=== PATIENT | male | born 1945 | race Caucasian/White ===

== ENCOUNTER 2016-11-20 13:38 | Emergency (ER) | payer BC ==
[~2016-11-20] VITALS: Ht 190.5 cm; Wt 72.0 kg
[~2016-11-20 13:38] MED LIST: ASPI81CH CHEW; ATOR20TA15 PO; DIAZ5TAB PO; FINA5TAB2 PO; HYDR-3535 PO; SERT-129 PO; TAMS5CAP PO; ZOLP12.5 PO
[2016-11-20 13:41] VITALS: BP 125/66; PULSE 65; RESP 20; TEMP 97.6; O2SAT 97
[2016-11-20] MEDS ORDERED: PANTOPRAZOLE SODIUM 40 MG VIAL IVP ONE (14:15)
[2016-11-20] MEDS ORDERED: SODIUM CHLORIDE 0.9% FLUSH 10 ML FLUSH IV FLUSH PRN (14:15)
--- NOTE | 2016-11-20 14:20 | PD ---
HPI Chief Complaint: Abdominal Pain Time Seen by Provider: 13:54 Travel History International Travel<30 days: No Contact w/Intl Traveler<30days: No Traveled to known affect area: No History of Present Illness HPI This patient complains of abdominal pain. Location is epigastric. Duration is 2 days. Severity is moderate. He has no vomiting or diarrhea or fever. He drinks very little alcohol. He reports black tarry stool for the last 2 times he had a bowel movement. No bright red bleeding. No presyncopal symptoms. No alleviating factors. Pain is worse when he eats PFSH Past Medical History Hx Anticoagulant Therapy: Yes (asa) Cardiovascular Problems: Yes (Bilat femoral bypass 2004) High Cholesterol: Yes Diminished Hearing: Yes Past Surgical History Cholecystectomy: Yes Other Surgery: Yes (HEMORROIDECTOMY) Social History Alcohol Use: No Tobacco Use: Yes (1 PPD) Substance Use: Yes (MARIJUANA) Allergies-Medications (Allergen,Severity, Reaction): Coded Allergies: Contrast Media (Verified Allergy, Intermediate, rash, 11/20/16) Rash on body don't remember which part Reported Meds & Prescriptions Reported Meds & Active Scripts Active Reported Atorvastatin (Atorvastatin Calcium) 20 Mg Tab 20 Mg PO HS Lortab (Hydrocodone-Acetaminophen) 10-325 Mg Tab 1 Tab PO Q6H PRN Zolpidem ER (Zolpidem Tartrate) 12.5 Mg Tab 12.5 Mg PO HS PRN Diazepam 5 Mg Tab 5 Mg PO TID PRN Finasteride 5 Mg Tab 5 Mg PO DAILY Do not crush. Sertraline (Sertraline HCl) 100 Mg Tab 100 Mg PO DAILY Flomax (Tamsulosin HCl) 0.4 Mg Cap 0.8 Mg PO HS Aspirin 81 Mg Chew 81 Mg CHEW DAILY Review of Systems General / Constitutional: No: Fever Eyes: No: Visual changes HENT: No: Headaches Cardiovascular: No: Chest Pain or Discomfort Respiratory: No: Shortness of Breath Gastrointestinal: Positive: Abdominal Pain Genitourinary: No: Dysuria Musculoskeletal: No: Pain Skin: No Rash Neurologic: No: Weakness Psychiatric: No: Depression Endocrine: No: Polydipsia Hematologic/Lymphatic: No: Easy Bruising Physical Exam Narrative GENERAL: Well-nourished, well-developed patient in no apparent distress. SKIN: Focused skin assessment reveals no rash and nodules. Skin is Warm and dry. HEAD: Atraumatic. Normocephalic. EYES: Pupils equal and round. No scleral icterus. No injection or drainage. ENT: No nasal bleeding or discharge. Mucous membranes pink and moist. NECK: Trachea midline. No JVD. CARDIOVASCULAR: Regular rate and rhythm. No murmur appreciated. RESPIRATORY: No accessory muscle use. Clear to auscultation. Breath sounds equal bilaterally. GASTROINTESTINAL: Abdomen soft, no significant tenderness, nondistended. Hepatic and splenic margins not palpable. MUSCULOSKELETAL: No obvious deformities. No clubbing. No cyanosis. No edema. NEUROLOGICAL: Awake and alert. No obvious cranial nerve deficits. Motor grossly within normal limits. Normal speech. PSYCHIATRIC: Appropriate mood and affect; insight and judgment normal. Data Data Last Documented VS Vital Signs Date Time Temp Pulse Resp B/P Pulse Ox O2 Delivery O2 Flow Rate FiO2 11/20/16 13:59 18 11/20/16 13:41 97.6 65 125/66 97 Room Air Orders Complete Blood Count With Diff (11/20/16 14:10) Comprehensive Metabolic Panel (11/20/16 14:10) Lipase (11/20/16 14:10) Prothrombin Time / Inr (Pt) (11/20/16 14:10) Act Partial Throm Time (Ptt) (11/20/16 14:10) Iv Access Insert/Monitor (11/20/16 14:10) NPO (11/20/16 14:10) Pantoprazole Inj (Protonix Inj) (11/20/16 14:15) Sodium Chloride 0.9% Flush (Ns Flush) (11/20/16 14:15) Labs Laboratory Tests Test 11/20/16 14:20 White Blood Count 7.5 TH/MM3 Red Blood Count 4.94 MIL/MM3 Hemoglobin 14.9 GM/DL Hematocrit 44.0 % Mean Corpuscular Volume 89.1 FL Mean Corpuscular Hemoglobin 30.2 PG Mean Corpuscular Hemoglobin 33.9 % Concent Red Cell Distribution Width 14.1 % Platelet Count 159 TH/MM3 Mean Platelet Volume 9.4 FL Neutrophils (%) (Auto) 62.2 % Lymphocytes (%) (Auto) 28.0 % Monocytes (%) (Auto) 5.8 % Eosinophils (%) (Auto) 3.6 % Basophils (%) (Auto) 0.4 % Neutrophils # (Auto) 4.6 TH/MM3 Lymphocytes # (Auto) 2.1 TH/MM3 Monocytes # (Auto) 0.4 TH/MM3 Eosinophils # (Auto) 0.3 TH/MM3 Basophils # (Auto) 0.0 TH/MM3 CBC Comment DIFF FINAL Differential Comment Prothrombin Time 11.4 SEC Prothromb Time International 1.0 RATIO Ratio Activated Partial 27.8 SEC Thromboplast Time Sodium Level 140 MEQ/L Potassium Level 3.9 MEQ/L Chloride Level 107 MEQ/L Carbon Dioxide Level 25.7 MEQ/L Anion Gap 7 MEQ/L Blood Urea Nitrogen 9 MG/DL Creatinine 1.10 MG/DL Estimat Glomerular Filtration 66 ML/MIN Rate Random Glucose 135 MG/DL Calcium Level 8.7 MG/DL Total Bilirubin 0.6 MG/DL Aspartate Amino Transf 21 U/L (AST/SGOT) Alanine Aminotransferase 36 U/L (ALT/SGPT) Alkaline Phosphatase 103 U/L Total Protein 6.9 GM/DL Albumin 3.7 GM/DL Lipase 86 U/L [facility] Medical Decision Making Medical Screen Exam Complete: Yes Emergency Medical Condition: Yes Medical Record Reviewed: Yes Differential Diagnosis Upper GI bleed, gastric ulcer, pancreatitis Narrative Course I have reviewed the patient's electronic medical record. Patient has history of bifemoral bypass which was done through abdominal approach. He has had a cholecystectomy as well. Normal hemoglobin laboratory studies from April 2016 IV placed CBC is normal with hemoglobin of 14.9 Metabolic profile is normal LFTs are normal Lipase is normal I gave him 40 mg IV Protonix On recheck he is doing well and declines any pain medicine either now or on prescription This clearly sounds like a GI related issue and he should get a gastroenterology follow-up He should take daily Prilosec I advised him on what to avoid diet-fox Diagnosis Primary Impression: Acute epigastric pain Additional Impression: Melena Additional Instructions: Follow-up with primary care and GI physician Take daily Prilosec Avoid anti-inflammatories and alcohol Stop aspirin for the short term and discuss that with your physician Return if he had significant bleeding or worsen Med/Other Pt SpecificInfo: Other Disposition: 01 DISCHARGE HOME Condition: Stable Stephen Rubio MD November 20, 2016 14:20
[2016-11-20 14:36] LABS: AUTOMATED NEUTROPHIL # 4.6 TH/MM3 (1.8-7.7); BASOPHIL % 0.4 % (0.0-2.0); EOSINOPHIL # 0.3 TH/MM3 (0-0.4); EOSINOPHIL % 3.6 % (0.0-4.0); HEMO FLAGS DIFF FINAL; LYMPHOCYTE # 2.1 TH/MM3 (1.0-4.8); MEAN CELL VOLUME 89.1 FL (80.0-100.0); MEAN CORPUSCULAR HEMOGLOBIN 30.2 PG (27.0-34.0); MEAN CORPUSCULAR HGB CONC 33.9 % (32.0-36.0); MONO % 5.8 % (0.0-8.0); NEUT % 62.2 % (16.0-70.0); PLATELET COUNT 159 TH/MM3 (150-450); RED BLOOD COUNT 4.94 MIL/MM3 (4.50-5.90); RED CELL DISTRIBUTION WIDTH 14.1 % (11.6-17.2); WHITE BLOOD COUNT 7.5 TH/MM3 (4.0-11.0)
[2016-11-20 14:46] LABS: APTT (PATIENT) 27.8 SEC (24.3-30.1); PROTHROMBIN TIME - PATIENT 11.4 SEC (9.8-11.6)
[2016-11-20 14:55] LABS: ALKALINE PHOSPHATASE 103 U/L (45-117); ALT (GPT) 36 U/L (12-78); TOTAL BILIRUBIN ADULT 0.6 MG/DL (0.2-1.0)
[2016-11-20 15:02] LABS: ANION GAP 7 MEQ/L (5-15); AST (GOT) 21 U/L (15-37); BICARBONATE 25.7 MEQ/L (21.0-32.0); BLOOD UREA NITROGEN 9 MG/DL (7-18); CHLORIDE 107 MEQ/L (98-107); GLOMERULAR FILTRATION RATE 66 ML/MIN (>89); POTASSIUM 3.9 MEQ/L (3.5-5.1); SODIUM (NA) 140 MEQ/L (136-145)
== END 2016-11-20 16:46 | disposition home or self-care (01) ==
LOC: NEPC 13:38
DX: R10.13 Epigastric pain (principal); K92.1 Melena; E78.00 Pure hypercholesterolemia, unspecified; H91.90 Unspecified hearing loss, unspecified ear; F17.200 Nicotine dependence, unspecified, uncomplicated; Z79.82 Long term (current) use of aspirin; Z86.79 Personal history of other diseases of the circulatory system
CPT/HCPCS: 80053; 83690; 85025; 85610; 85730; 96374; 99284; C9113

== ENCOUNTER 2017-04-28 16:56 | Emergency (ER) | payer BC ==
[~2017-04-28 16:56] MED LIST changes: +ASPI-516 CHEW; -ASPI81CH CHEW
[2017-04-28 17:09] VITALS: BP 134/69; PULSE 42; RESP 20; O2SAT 10
[2017-04-28] MEDS ORDERED: BUPIVACAINE HCL PF 0.5% 30 ML VIAL INFIL ONE (17:15)
[2017-04-28] MEDS ORDERED: LIDOCAINE 2%/EPINEPHrine 1:100,000 20ML MDV NERV BLOCK ONE (17:15)
--- NOTE | 2017-04-28 17:22 | PD ---
HPI Chief Complaint: Laceration/Skin Injury Time Seen by Provider: 17:11 Travel History International Travel<30 days: No Contact w/Intl Traveler<30days: No Traveled to known affect area: No History of Present Illness HPI 71-year-old male brought in by EMS from his home after an incident with his [place], sustaining a laceration to the distal lateral right thumb, while working on some bathroom remodeling in his home. She states his tetanus is up-to-date. Patient states his pain is 9 out of 10. Bleeding is currently controlled with pressure dressing. He has no other injury. PFSH Past Medical History Hx Anticoagulant Therapy: Yes (asa) Cardiovascular Problems: Yes (Bilat femoral bypass 2004) High Cholesterol: Yes Diminished Hearing: Yes Tetanus Vaccination: < 5 Years Past Surgical History Abdominal Surgery: Yes (cholecystectomy) Cardiac Surgery: Yes (BIPASS ) Cholecystectomy: Yes Other Surgery: Yes (HEMORROIDECTOMY) Social History Alcohol Use: No Tobacco Use: Yes (1 PPD) Substance Use: Yes (MARIJUANA) Allergies-Medications (Allergen,Severity, Reaction): Coded Allergies: diatrizoate meglumine (Unverified Allergy, Intermediate, rash, 04/15/17) Rash on body don't remember which part gadobenic acid (Unverified Allergy, Intermediate, rash, 04/15/17) Rash on body don't remember which part gadodiamide (Unverified Allergy, Intermediate, rash, 04/15/17) Rash on body don't remember which part gadoteridol (Unverified Allergy, Intermediate, rash, 04/15/17) Rash on body don't remember which part iodixanol (Unverified Allergy, Intermediate, rash, 04/15/17) Rash on body don't remember which part iohexol (Unverified Allergy, Intermediate, rash, 04/15/17) Rash on body don't remember which part Reported Meds & Prescriptions Reported Meds & Active Scripts Active Ibuprofen 800 Mg Tab 800 Mg PO Q8H PRN 10 Days Keflex (Cephalexin) 500 Mg Cap 500 Mg PO Q8H 7 Days Reported Atorvastatin (Atorvastatin Calcium) 20 Mg Tab 20 Mg PO HS Lortab (Hydrocodone-Acetaminophen) 10-325 Mg Tab 1 Tab PO Q6H PRN Zolpidem ER (Zolpidem Tartrate) 12.5 Mg Tab 12.5 Mg PO HS PRN Diazepam 5 Mg Tab 5 Mg PO TID PRN Finasteride 5 Mg Tab 5 Mg PO DAILY Do not crush. Sertraline (Sertraline HCl) 100 Mg Tab 100 Mg PO DAILY Flomax (Tamsulosin HCl) 0.4 Mg Cap 0.8 Mg PO HS Aspirin 81 Mg Chew 81 Mg CHEW DAILY Review of Systems Except as stated in HPI: all other systems reviewed are Neg General / Constitutional: No: Fever Eyes: No: Visual changes HENT: No: Headaches Cardiovascular: No: Chest Pain or Discomfort Respiratory: No: Shortness of Breath Gastrointestinal: No: Abdominal Pain Genitourinary: No: Dysuria Musculoskeletal: No: Pain Skin: Positive Lesions, No Rash Neurologic: No: Weakness Psychiatric: No: Depression Endocrine: No: Polydipsia Hematologic/Lymphatic: No: Easy Bruising Physical Exam Narrative GENERAL: Patient appears in moderate distress. SKIN: Warm and dry. Decreased pallor. No diaphoresis. Normal turgor. Patient has a laceration to the lateral distal right thumb with apparent avulsion of the nail bed at the base. Laceration approaches the nail but does not cut into the nail itself versus inspection. The wound does not involve the DIP joint by inspection. Bleeding is currently controlled. HEAD: Atraumatic. Normocephalic. EYES: Pupils equal and round. No scleral icterus. No injection or drainage. ENT: No nasal bleeding or discharge. Mucous membranes pink and moist. Pharynx is clear. Airway is patent. NECK: Trachea midline. Supple nontender. CARDIOVASCULAR: Regular rate and rhythm. RESPIRATORY: No accessory muscle use. Clear to auscultation. Breath sounds equal bilaterally. MUSCULOSKELETAL: Extremities without clubbing, cyanosis, or edema. No obvious deformities. NEUROLOGICAL: Awake and alert. No obvious cranial nerve deficits. Motor grossly within normal limits. Five out of 5 muscle strength in the arms and legs. Normal speech. PSYCHIATRIC: Appropriate mood and affect; insight and judgment normal. Data Data Last Documented VS Vital Signs Date Time Temp Pulse Resp B/P (MAP) Pulse Ox O2 Delivery O2 Flow Rate FiO2 04/28/17 17:19 48 04/28/17 17:09 20 134/69 (90) 10 Orders Orders Bupivacaine Pf 0.5% Inj (Marcaine Pf 0.5 (04/28/17 17:15) Lidocai-Epi 2%-1:100,000 Inj (Xylocaine- (04/28/17 17:15) Finger ([id number]) (04/28/17 17:20) Basic Metabolic Panel (Bmp) (04/28/17 17:20) Complete Blood Count With Diff (04/28/17 17:20) Iv Access Insert/Monitor (04/28/17 17:20) Cefazolin Inj (Ancef Inj) (04/28/17 17:30) Sodium Chloride 0.9% Flush (Ns Flush) (04/28/17 17:30) Chest, Single Ap (04/28/17 17:20) Labs Laboratory Tests Test 04/28/17 17:45 White Blood Count 14.1 TH/MM3 Red Blood Count 4.49 MIL/MM3 Hemoglobin 13.8 GM/DL Hematocrit 40.6 % Mean Corpuscular Volume 90.6 FL Mean Corpuscular Hemoglobin 30.9 PG Mean Corpuscular Hemoglobin Concent 34.1 % Red Cell Distribution Width 14.4 % Platelet Count 151 TH/MM3 Mean Platelet Volume 9.7 FL Neutrophils (%) (Auto) 75.8 % Lymphocytes (%) (Auto) 16.6 % Monocytes (%) (Auto) 5.2 % Eosinophils (%) (Auto) 1.8 % Basophils (%) (Auto) 0.6 % Neutrophils # (Auto) 10.7 TH/MM3 Lymphocytes # (Auto) 2.3 TH/MM3 Monocytes # (Auto) 0.7 TH/MM3 Eosinophils # (Auto) 0.3 TH/MM3 Basophils # (Auto) 0.1 TH/MM3 CBC Comment DIFF FINAL Differential Comment MDM Medical Decision Making Medical Screen Exam Complete: Yes Emergency Medical Condition: Yes Medical Record Reviewed: Yes Differential Diagnosis Right thumb laceration. Possible bone laceration. Nail avulsion. History of bradycardia. Narrative Course Patient is medically stable at time of exam. Digital block is placed consisting of 50-50 mix of 2% lidocaine with epi and 0.5 % bupivacaine, with a total of 5 mL total injected. Anesthesia was excellent. X-ray of the right thumb is ordered. Labs ordered including CBC BMP, and chest x-ray. EKG shows sinus bradycardia which is well documented in the patient's chart. Labs and chest x-ray is unremarkable. X-ray shows small avulsion type fracture of the distal tuft of the right thumb. Patient is given 1 g Ancef IV. Laceration is repaired. See laceration note. Patient is sent home on Keflex 500 mg 3 times a day 7 days. Patient is given ibuprofen 800 mg 3 times a day #30. Patient has pain medication only can take as well. Dressing and wound care is discussed. Patient should follow with Dr. Gunter, the hand surgeon instrumentation engineer next week for wound check, or return to emergency department if necessary. Procedures Procedure Narrative LACERATION LOCATION: Right distal thumb LENGTH: To have centimeters NUMBER OF STITCHES/JOSE: 1 vertical mattress, 6 simple interrupted REPAIR: The area of the laceration was prepped with Betadine and sterilely draped. Digital block was placed consisting of 50-50 mix of 2% lidocaine with epi mixed with 0.5% bupivacaine, total of 4 mL square placed with good anesthetic effect.. The wound was copiously irrigated and explored without evidence of foreign body, tendon injury or neurovascular injury. The nail was removed as it was completely avulsed from the face. The wound was closed using 4-0 Prolene. This was a single layer repair. A sterile dressing was applied. The patient was advised to keep the dressing clean and dry. Patient tolerated the procedure well. Diagnosis Primary Impression: Laceration of right thumb with damage to nail Qualified Codes: S61.111A - Laceration without foreign body of right thumb with damage to nail, initial encounter Additional Impression: Open fracture of tuft of distal phalanx of right thumb Referrals: Malia Gunter MD call for appointment Patient Instructions: Finger Fracture (ED), Finger Laceration (ED), General Instructions Additional Instructions: Patient is sent home on Keflex 500 mg 3 times a day 7 days. Patient is given ibuprofen 800 mg 3 times a day #30. Patient has pain medication only can take as well. Dressing and wound care is discussed. Patient should follow with Dr. Gunter, the hand surgeon instrumentation engineer next week for wound check, or return to emergency department if necessary. Med/Other Pt SpecificInfo: Wound Care Scripts Ibuprofen (Ibuprofen) 800 Mg Tab 800 MG PO Q8H Y for Pain/Inflammation for 10 Days, #30 TAB 0 Refills Prov: Esteban Cardona MD 04/28/17 Cephalexin (Keflex) 500 Mg Cap 500 MG PO Q8H for Infection for 7 Days, #21 CAP 0 Refills Prov: Esteban Cardona MD 04/28/17 Disposition: 01 DISCHARGE HOME Condition: Stable Jay Isabel Apr 28, 2017 17:22
[2017-04-28] MEDS ORDERED: SODIUM CHLORIDE 0.9% FLUSH 10 ML FLUSH IVF PRN (17:30)
--- NOTE | 2017-04-28 18:12 | RADRPT ---
EXAM DATE/TIME: 04/28/2017 17:40 [facility] COMPARISON: No previous studies available for comparison. INDICATIONS : Trauma. Short of breath. MEDICAL HISTORY : None. SURGICAL HISTORY : None. ENCOUNTER: Initial ACUITY: 1 day PAIN SCORE: 0/10 LOCATION: Bilateral chest FINDINGS: A single view of the chest demonstrates the lungs to be symmetrically aerated without evidence of mas s, infiltrate or effusion. The cardiomediastinal contours are unremarkable. Osseous structures are intact. There are multiple overlying electrocardiogram leads. CONCLUSION: No acute disease. Leonard Brewer MD on April 28, 2017 at 18:10 Board Certified Radiologist. This report was verified electronically.
--- NOTE | 2017-04-28 18:15 | RADRPT ---
EXAM DATE/TIME: 04/28/2017 17:42 [facility] COMPARISON: No previous studies available for comparison. INDICATIONS : Right hand thumb pain and swelling Patient states he pinched it in a tool. MEDICAL HISTORY : None. SURGICAL HISTORY : None. ENCOUNTER: Initial ACUITY: 1 day PAIN SCORE: 10/10 LOCATION: Right hand first digit. FINDINGS: Multiple views the right first digit were obtained and demonstrate soft tissue swelling and deformity over the distal digit. There is an apparent avulsed distal fracture fragment which appears displaced approximately 6-7 mm. There is gas in the soft tissues. CONCLUSION: Small displaced fracture fragment off the distal phalanx. Leonard Brewer MD on April 28, 2017 at 18:11 Board Certified Radiologist. This report was verified electronically.
[2017-04-28 18:18] LABS: AUTOMATED NEUTROPHIL # 10.7 TH/MM3 (1.8-7.7); BASOPHIL # 0.1 TH/MM3 (0-0.2); BASOPHIL % 0.6 % (0.0-2.0); EOSINOPHIL # 0.3 TH/MM3 (0-0.4); EOSINOPHIL % 1.8 % (0.0-4.0); HEMATOCRIT 40.6 % (39.0-51.0); HEMO FLAGS DIFF FINAL; LYMPH % 16.6 % (9.0-44.0); LYMPHOCYTE # 2.3 TH/MM3 (1.0-4.8); MEAN CELL VOLUME 90.6 FL (80.0-100.0); MEAN CORPUSCULAR HEMOGLOBIN 30.9 PG (27.0-34.0); MEAN CORPUSCULAR HGB CONC 34.1 % (32.0-36.0); MONO % 5.2 % (0.0-8.0); NEUT % 75.8 % (16.0-70.0); PLATELET COUNT 151 TH/MM3 (150-450); RED BLOOD COUNT 4.49 MIL/MM3 (4.50-5.90); RED CELL DISTRIBUTION WIDTH 14.4 % (11.6-17.2); WHITE BLOOD COUNT 14.1 TH/MM3 (4.0-11.0)
[2017-04-28] MEDS ORDERED: CEPH-460 PO (18:33)
[2017-04-28] MEDS ORDERED: IBUP1TAB7 PO (18:33)
[2017-04-28 18:48] LABS: POTASSIUM 4.4 MEQ/L (3.5-5.1)
--- NOTE | 2017-04-29 15:46 | EKG ---
Date Performed: 04/28/2017 Time Performed: 17:20:46 PTAGE: 71 years EKG: SINUS BRADYCARDIA ABNORMAL ECG Compared to prior tracing no significant change DOCTOR: Vinayak Gray Interpretating Date/Time 04/29/2017 15:44:52
== END 2017-04-28 19:24 | disposition home or self-care (01) ==
LOC: NEPC 16:56
DX: S61.111A Laceration without foreign body of right thumb with damage to nail, initial encounter (principal); R00.1 Bradycardia, unspecified; W29.8XXA Contact with other powered hand tools and household machinery, initial encounter; Y93.H3 Activity, building and construction; Y92.002 Bathroom of unspecified non-institutional (private) residence as the place of occurrence of the external cause
CPT/HCPCS: 12001; 71010; 73140; 80048; 85025; 93005; 96365; 99284; J0690

== ENCOUNTER → 2017-10-15 | Outpatient (CLI) | payer BC ==
--- NOTE | 2017-10-21 10:08 | RSPPFT ---
DATE OF PROCEDURE: 10/15/17 COMMENTS: Spirometry shows FVC of 3.2 at 63% of predicted, FEV1 of 2.4 at 60%, FEV1/FVC ratio is decreased. Flow is decreased at FEF 25 and FEF 25-75. There is a good response after bronchodilator treatment. Lung volumes show residual volume is increased. TLC is normal. Diffusion capacity is decreased. Flow volume loop indicates an obstructive pattern. Room air arterial blood gases show pH of 7.42, PCO2 of 39, PO2 of 103, BiCarb of 25 and Saturation at 94%. IMPRESSION: 1. Mild obstructive lung disease. 2. Good response after bronchodilator treatment. 3. Lung volumes show hyperinflation. 4. Mild decrease in diffusion capacity. 5. Room air arterial blood gases show normal oxygenation.
== END ==
LOC: HRSP 13:05
PROVIDERS: ATTEND Specialist
DX: J44.9 Chronic obstructive pulmonary disease, unspecified (principal)
CPT/HCPCS: 36600; 82805; 94060; 94726; 94729

== ENCOUNTER 2017-11-18 15:24 | Observation (INO) | payer BC ==
[2017-11-18 15:37] VITALS: BP 122/60; PULSE 44; RESP 16; TEMP 98.6; O2SAT 97
[2017-11-18 15:55] VITALS: BP 132/70; PULSE 42; RESP 16; O2SAT 98
[2017-11-18] MEDS ORDERED: SODIUM CHLORIDE 0.9% FLUSH 10 ML FLUSH IVF PRN (16:00)
[2017-11-18] MEDS ORDERED: ZANT150T2 PO ×2 (16:04)
--- NOTE | 2017-11-18 16:04 | PD ---
HPI Chief Complaint: Cardiac Complaint Time Seen by Provider: 15:50 Travel History International Travel<30 days: No Contact w/Intl Traveler<30days: No Traveled to known affect area: No History of Present Illness HPI 71-year-old male patient with history of smoking, peripheral vascular disease, status post femoropopliteal bypass, presents to the ER today because he states that he ran into the wall 2 days ago and hit his head, had no loss consciousness , but woke up this morning feeling more weak and disoriented, generally weak. He denies any chest pains, shortness of breath, vomiting, headaches, or other issues. He is not on blood thinners. Modifying Factors: None Associated Signs & Symptoms: Head injury last night, general weakness, dizziness Risk Factors: None PFSH Past Medical History Hx Anticoagulant Therapy: Yes (asa) Cardiovascular Problems: Yes (Bilat femoral bypass 2004) High Cholesterol: Yes Diminished Hearing: Yes Past Surgical History Abdominal Surgery: Yes (cholecystectomy) Cardiac Surgery: Yes (BIPASS ) Cholecystectomy: Yes Other Surgery: Yes (HEMORROIDECTOMY) Social History Alcohol Use: No Tobacco Use: Yes (1 PPD) Substance Use: Yes (MARIJUANA) Allergies-Medications (Allergen,Severity, Reaction): Coded Allergies: diatrizoate meglumine (Verified Allergy, Intermediate, rash, 06/10/17) Rash on body don't remember which part gadobenic acid (Verified Allergy, Intermediate, rash, 06/10/17) Rash on body don't remember which part gadodiamide (Verified Allergy, Intermediate, rash, 06/10/17) Rash on body don't remember which part gadoteridol (Verified Allergy, Intermediate, rash, 06/10/17) Rash on body don't remember which part iodixanol (Verified Allergy, Intermediate, rash, 06/10/17) Rash on body don't remember which part iohexol (Verified Allergy, Intermediate, rash, 06/10/17) Rash on body don't remember which part Reported Meds & Prescriptions Reported Meds & Active Scripts Active Reported Zantac (Ranitidine HCl) 150 Mg Tab 150 Mg PO DAILY Atorvastatin (Atorvastatin Calcium) 20 Mg Tab 20 Mg PO HS Zolpidem ER (Zolpidem Tartrate) 12.5 Mg Tab 12.5 Mg PO HS PRN Diazepam 5 Mg Tab 5 Mg PO TID PRN Finasteride 5 Mg Tab 5 Mg PO DAILY Do not crush. Sertraline (Sertraline HCl) 100 Mg Tab 100 Mg PO DAILY Flomax (Tamsulosin HCl) 0.4 Mg Cap 0.8 Mg PO HS Aspirin 81 Mg Chew 81 Mg CHEW DAILY Review of Systems Except as stated in HPI: all other systems reviewed are Neg Physical Exam Narrative GENERAL: Well-developed elderly male patient currently in mild distress. Awake and oriented 3. SKIN: Focused skin assessment warm/dry. HEAD: Atraumatic. Normocephalic. EYES: Pupils equal and round. No scleral icterus. No injection or drainage. ENT: No nasal bleeding or discharge. Mucous membranes pink and moist. NECK: Trachea midline. No JVD. Supple. CARDIOVASCULAR: Regular rate and rhythm. No murmur appreciated. RESPIRATORY: No accessory muscle use. Clear to auscultation. Breath sounds equal bilaterally. GASTROINTESTINAL: Abdomen soft, non-tender, nondistended. Hepatic and splenic margins not palpable. MUSCULOSKELETAL: No obvious deformities. No clubbing. No cyanosis. No edema. NEUROLOGICAL: Awake and alert. No obvious cranial nerve deficits. Motor grossly within normal limits. Normal speech. PSYCHIATRIC: Appropriate mood and affect; insight and judgment normal. Data Data Last Documented VS Vital Signs Date Time Temp Pulse Resp B/P (MAP) Pulse Ox O2 Delivery O2 Flow Rate FiO2 11/18/17 18:56 44 18 146/75 (98) 97 11/18/17 15:55 Room Air 11/18/17 15:37 98.6 Orders Orders Electrocardiogram (11/18/17 15:50) Complete Blood Count With Diff (11/18/17 15:50) Comprehensive Metabolic Panel (11/18/17 15:50) Magnesium (Mg) (11/18/17 15:50) Ckmb (Isoenzyme) Profile (11/18/17 15:50) Troponin I (11/18/17 15:50) Act Partial Throm Time (Ptt) (11/18/17 15:50) Prothrombin Time / Inr (Pt) (11/18/17 15:50) Urinalysis - C+S If Indicated (11/18/17 15:50) Chest, Single Ap (11/18/17 15:50) Ct Brain W/O Iv Contrast(Rout) (11/18/17 15:50) Ecg Monitoring (11/18/17 15:50) Iv Access Insert/Monitor (11/18/17 15:50) Oximetry (11/18/17 15:50) Sodium Chloride 0.9% Flush (Ns Flush) (11/18/17 16:00) CKMB (11/18/17 15:50) CKMB% (11/18/17 15:50) Acetaminophen (Tylenol) (11/18/17 18:45) Drug Screen, Random Urine (11/18/17 18:59) Admit Order (Ed Use Only) (11/18/17 19:01) Labs Laboratory Tests Test 11/18/17 15:50 White Blood Count 8.4 TH/MM3 Red Blood Count 4.87 MIL/MM3 Hemoglobin 14.7 GM/DL Hematocrit 44.5 % Mean Corpuscular Volume 91.5 FL Mean Corpuscular Hemoglobin 30.1 PG Mean Corpuscular Hemoglobin Concent 32.9 % Red Cell Distribution Width 14.4 % Platelet Count 156 TH/MM3 Mean Platelet Volume 9.0 FL Neutrophils (%) (Auto) 68.8 % Lymphocytes (%) (Auto) 24.0 % Monocytes (%) (Auto) 6.1 % Eosinophils (%) (Auto) 0.6 % Basophils (%) (Auto) 0.5 % Neutrophils # (Auto) 5.8 TH/MM3 Lymphocytes # (Auto) 2.0 TH/MM3 Monocytes # (Auto) 0.5 TH/MM3 Eosinophils # (Auto) 0.1 TH/MM3 Basophils # (Auto) 0.0 TH/MM3 CBC Comment DIFF FINAL Differential Comment Prothrombin Time 11.0 SEC Prothromb Time International Ratio 1.1 RATIO Activated Partial Thromboplast Time 25.3 SEC Blood Urea Nitrogen 13 MG/DL Creatinine 1.46 MG/DL Random Glucose 86 MG/DL Total Protein 6.6 GM/DL Albumin 3.7 GM/DL Calcium Level 8.5 MG/DL Magnesium Level 2.0 MG/DL Alkaline Phosphatase 88 U/L Aspartate Amino Transf (AST/SGOT) 20 U/L Alanine Aminotransferase (ALT/SGPT) 43 U/L Total Bilirubin 0.8 MG/DL Sodium Level 139 MEQ/L Potassium Level 4.6 MEQ/L Chloride Level 107 MEQ/L Carbon Dioxide Level 24.6 MEQ/L Anion Gap 7 MEQ/L Estimat Glomerular Filtration Rate 48 ML/MIN Total Creatine Kinase 122 U/L Creatine Kinase MB 1.1 NG/ML Troponin I LESS THAN 0.02 NG/ML MDM Medical Decision Making Medical Screen Exam Complete: Yes Emergency Medical Condition: Yes Medical Record Reviewed: Yes Interpretation(s) EKG shows sinus bradycardia rate of 44 bpm. No signs of acute ST elevations or depressions. Laboratory Tests Test 11/18/17 15:50 Creatinine 1.46 MG/DL (0.60-1.30) Estimat Glomerular Filtration Rate 48 ML/MIN (>89) Troponin I LESS THAN 0.02 NG/ML Last [address] 11/18/17 1550 Signed Impressions: CONCLUSION: 1. No acute intracranial pathology. 2. 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 3. Stable calcifications also noted in the right cerebellar hemisphere. 4. No new or significant changes compared to 2016. Chest X-Ray 11/18/17 1550 Signed Impressions: CONCLUSION: 1. No acute abnormality or significant interval change. Differential Diagnosis Concussion versus ICH versus dehydration versus electrolyte abnormalities Narrative Course Chest x-ray is fairly unremarkable for acute processes. CT of the brain did not show any signs of acute injuries. EKG does show significant bradycardia which could be causing the patient to feel this way. Lab work was fairly unremarkable. At this point, my plan would be to admit him as an observation for bradycardia. Case is discussed with Dr. Rojo for admission. Diagnosis Primary Impression: Symptomatic bradycardia Additional Impression: Symptomatic bradycardia Admitting Information Admitting Physician Requests: Admit Sarahy Santos MD November 18, 2017 16:04
--- NOTE | 2017-11-18 16:24 | RADRPT ---
EXAM DATE: 11/18/2017 4:21 PM EDT AGE/SEX: 71 years / Male INDICATIONS: Palpitations- Dizziness and weakness. CLINICAL DATA: This is the patient's initial encounter. Patient reports that signs and symptoms have been present for 1 day and indicates a pain score of 0/10. MEDICAL/SURGICAL HISTORY: Hypercholesterolemia. Chronic obstructive pulmonary disease. Hyperli pidemia. Cholecystectomy. Hemorrhoidectomy. Bilateral femoral bypass surgery. COMPAR[place]: [facility] [place]. . FINDINGS: No new focal pleural or parenchymal opacities. Cardiomediastinal contours are within normal limits. R emainder of the exam is unchanged. CONCLUSION: 1. No acute abnormality or significant interval change. Electronically signed by: Azam Neal MD 11/18/2017 4:22 PM EDT
[2017-11-18 16:28] LABS: AUTOMATED NEUTROPHIL # 5.8 TH/MM3 (1.8-7.7); BASOPHIL % 0.5 % (0.0-2.0); EOSINOPHIL # 0.1 TH/MM3 (0-0.4); EOSINOPHIL % 0.6 % (0.0-4.0); HEMATOCRIT 44.5 % (39.0-51.0); HEMOGLOBIN 14.7 GM/DL (13.0-17.0); MEAN CELL VOLUME 91.5 FL (80.0-100.0); MEAN CORPUSCULAR HEMOGLOBIN 30.1 PG (27.0-34.0); MEAN CORPUSCULAR HGB CONC 32.9 % (32.0-36.0); MONO % 6.1 % (0.0-8.0); MONOCYTE # 0.5 TH/MM3 (0-0.9); NEUT % 68.8 % (16.0-70.0); PLATELET COUNT 156 TH/MM3 (150-450); RED BLOOD COUNT 4.87 MIL/MM3 (4.50-5.90); RED CELL DISTRIBUTION WIDTH 14.4 % (11.6-17.2); WHITE BLOOD COUNT 8.4 TH/MM3 (4.0-11.0)
[2017-11-18 16:40] LABS: INTERNATIONAL NORMALIZED RATIO 1.1 RATIO
[2017-11-18 16:43] LABS: ALT (GPT) 43 U/L (12-78)
[2017-11-18 16:48] LABS: ALKALINE PHOSPHATASE 88 U/L (45-117); TOTAL BILIRUBIN ADULT 0.8 MG/DL (0.2-1.0); TOTAL PROTEIN 6.6 GM/DL (6.4-8.2); TROPONIN I LESS THAN 0.02 NG/ML (0.02-0.05)
[2017-11-18 16:50] LABS: ALBUMIN 3.7 GM/DL (3.4-5.0); AST (GOT) 20 U/L (15-37); BICARBONATE 24.6 MEQ/L (21.0-32.0); BLOOD UREA NITROGEN 13 MG/DL (7-18); CALCIUM 8.5 MG/DL (8.5-10.1); CHLORIDE 107 MEQ/L (98-107); CREATININE 1.46 MG/DL (0.60-1.30); GLOMERULAR FILTRATION RATE 48 ML/MIN (>89); GLUCOSE,RANDOM 86 MG/DL (74-106); SODIUM (NA) 139 MEQ/L (136-145)
--- NOTE | 2017-11-18 17:49 | RADRPT ---
EXAM DATE: 11/18/2017 5:44 PM EDT AGE/SEX: 71 years / Male INDICATIONS: Dizziness after hitting head. CLINICAL DATA: This is the patient's initial encounter. Patient reports that signs and symptoms have been present for 2 days and indicates a pain score of 0/10. MEDICAL/SURGICAL HISTORY: Cardiovascular disease. None. RADIATION DOSE: 56.35 CTDI (mGy) COMPARISON: [facility] – [place] BRAIN W/O CONTRAST, 05/02/2016. . TECHNIQUE: CT of the head without contrast. Using automated exposure control and adjustment of the mA and/or kV according to patient size, radiation dose was kept as low as reasonably achievable to ob tain optimal diagnostic quality images. FINDINGS: Cerebrum: The ventricles are normal for age. No evidence of midline shift, mass lesion, hemorrhage or acute infarction. No extraaxial fluid collections are seen. Posterior Fossa: There is a stable punctate old infarct in the posterior right cerebellar hemisphere unchanged from 2016. There is a stable ringlike calcification and adjacent calcifications in the rig ht cerebellar hemisphere. These findings are also stable and unchanged compared to 2016.. The 4th ve ntricle is midline. The cerebellopontine angle is unremarkable. Extracranial: The visualized portion of the orbits is intact. Skull: The calvaria is intact. No evidence of skull fracture. CONCLUSION: 1. No acute intracranial pathology. 2. 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 3. Stable calcifications also noted in the right cerebellar hemisphere. 4. No new or significant changes compared to 2016. Electronically signed by: Anshul Almeida MD 11/18/2017 5:48 PM EDT
[2017-11-18] MEDS ORDERED: ACETAMINOPHEN 325 MG TAB PO ONE (18:45)
[2017-11-18 18:56] VITALS: BP 146/75; PULSE 44; RESP 18; O2SAT 97
[2017-11-18 19:14] VITALS: BP 137/78; PULSE 40; RESP 18; O2SAT 99
[2017-11-18] MEDS ORDERED: SODIUM CHLORIDE 0.9% FLUSH 10 ML FLUSH IV FLUSH PRN (19:15)
[2017-11-18] MEDS ORDERED: LACTULOSE SYRUP 20 GM/30 ML CUP PO PRN (19:15)
[2017-11-18] MEDS ORDERED: MAGNESIUM HYDROXIDE SUSP 30 ML CUP PO PRN (19:15)
[2017-11-18] MEDS ORDERED: BISACODYL 10 MG SUPP RECTAL PRN (19:15)
[2017-11-18] MEDS ORDERED: SENNOSIDES 8.6 MG TAB PO PRN (19:15)
[2017-11-18] MEDS ORDERED: NALOXONE HCL 0.4 MG/ML AMP IV PUSH PRN (19:15)
--- NOTE | 2017-11-18 20:11 | HHI.HP ---
[facility] Service [facility] Primary Care Physician Iker Gates MD Admission Diagnosis Symptomatic bradycardia Diagnoses: Chief Complaint: Generalized weakness Travel History International Travel<30 Days: No Contact w/Intl Traveler <30 Da: No Traveled to Known Affected Are: No History of Present Illness Mr. Lewis is a 71-year-old male with a history of peripheral vascular disease, hyperlipidemia who presented to the emergency department on 11/18/2017 due to hitting his head when he ran into the wall. He also woke up this morning feeling very weak and disoriented. Denies any chest pain, shortness of breath, fever or chills. Patient also reports feeling lightheadedness in the last couple of days. He went to [employer] [facility] and felt lightheaded. He went to his primary care physician where he was found to have blood pressure around 70s systolic and heart rate in the 40s. He denies any cough, abdominal pain, changes in bladder or bowel habits. Review of Systems Except as stated in HPI: all other systems reviewed are Neg Past Family Social History Past Medical History Peripheral vascular disease, hyperlipidemia Past Surgical History Cholecystectomy, CABG, hemorrhoidectomy Reported Medications Zantac (Ranitidine HCl) 150 Mg Tab 150 Mg PO DAILY Atorvastatin (Atorvastatin Calcium) 20 Mg Tab 20 Mg PO HS Zolpidem ER (Zolpidem Tartrate) 12.5 Mg Tab 12.5 Mg PO HS PRN Diazepam 5 Mg Tab 5 Mg PO TID PRN Finasteride 5 Mg Tab 5 Mg PO DAILY Do not crush. Sertraline (Sertraline HCl) 100 Mg Tab 100 Mg PO DAILY Flomax (Tamsulosin HCl) 0.4 Mg Cap 0.8 Mg PO HS Aspirin 81 Mg Chew 81 Mg CHEW DAILY Allergies: Coded Allergies: diatrizoate meglumine (Verified Allergy, Intermediate, rash, 06/10/17) Rash on body don't remember which part gadobenic acid (Verified Allergy, Intermediate, rash, 06/10/17) Rash on body don't remember which part gadodiamide (Verified Allergy, Intermediate, rash, 06/10/17) Rash on body don't remember which part gadoteridol (Verified Allergy, Intermediate, rash, 06/10/17) Rash on body don't remember which part iodixanol (Verified Allergy, Intermediate, rash, 06/10/17) Rash on body don't remember which part iohexol (Verified Allergy, Intermediate, rash, 06/10/17) Rash on body don't remember which part Family History No family history of Alzheimer's or Parkinson's. Social History Alcohol Use: No Tobacco Use: Yes (1 PPD) Substance Use: Yes (MARIJUANA) Physical Exam Vital Signs Vital Signs Date Time Temp Pulse Resp B/P (MAP) Pulse Ox O2 Delivery O2 Flow Rate FiO2 11/18/17 19:43 11/18/17 19:14 40 18 137/78 (97) 99 Room Air 11/18/17 18:56 44 18 146/75 (98) 97 11/18/17 15:55 99 11/18/17 15:55 42 16 132/70 (90) 98 Room Air 11/18/17 15:37 98.6 44 16 122/60 (80) 97 Physical Exam GENERAL: This is a well-nourished, well-developed patient, in no apparent distress. SKIN: No rashes, ecchymoses or lesions. Warm and dry. HEAD: Atraumatic. Normocephalic. No temporal or scalp tenderness. EYES: Pupils equal round and reactive. No injection or drainage. ENT: Nose without bleeding, purulent drainage or septal hematoma. Airway patent. NECK: Trachea midline. No lymphadenopathy. Supple, nontender, no meningeal signs. CARDIOVASCULAR: Regular rhythm, bradycardic without murmurs, gallops, or rubs. No JVD. RESPIRATORY: Clear to auscultation. Breath sounds equal bilaterally. No wheezes , rales, or rhonchi. GASTROINTESTINAL: Abdomen soft, non-tender, nondistended. No guarding. MUSCULOSKELETAL: Extremities without clubbing, cyanosis, or edema. NEUROLOGICAL: Awake and alert. Cranial nerves II through XII intact. No focal neurological deficits. Normal speech. Laboratory Laboratory Tests Test 11/18/17 15:50 White Blood Count 8.4 Red Blood Count 4.87 Hemoglobin 14.7 Hematocrit 44.5 Mean Corpuscular Volume 91.5 Mean Corpuscular Hemoglobin 30.1 Mean Corpuscular Hemoglobin Concent 32.9 Red Cell Distribution Width 14.4 Platelet Count 156 Mean Platelet Volume 9.0 Neutrophils (%) (Auto) 68.8 Lymphocytes (%) (Auto) 24.0 Monocytes (%) (Auto) 6.1 Eosinophils (%) (Auto) 0.6 Basophils (%) (Auto) 0.5 Neutrophils # (Auto) 5.8 Lymphocytes # (Auto) 2.0 Monocytes # (Auto) 0.5 Eosinophils # (Auto) 0.1 Basophils # (Auto) 0.0 CBC Comment DIFF FINAL Differential Comment Prothrombin Time 11.0 Prothromb Time International Ratio 1.1 Activated Partial Thromboplast Time 25.3 Blood Urea Nitrogen 13 Creatinine 1.46 Random Glucose 86 Total Protein 6.6 Albumin 3.7 Calcium Level 8.5 Magnesium Level 2.0 Alkaline Phosphatase 88 Aspartate Amino Transf (AST/SGOT) 20 Alanine Aminotransferase (ALT/SGPT) 43 Total Bilirubin 0.8 Sodium Level 139 Potassium Level 4.6 Chloride Level 107 Carbon Dioxide Level 24.6 Anion Gap 7 Estimat Glomerular Filtration Rate 48 Total Creatine Kinase 122 Creatine Kinase MB 1.1 Troponin I LESS THAN 0.02 Result Diagram: 11/18/17 1550 11/18/17 1550 Imaging Last Impressions Head CT 11/18/17 155 Signed Impressions: CONCLUSION: 1. No acute intracranial pathology. 2. 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 3. Stable calcifications also noted in the right cerebellar hemisphere. 4. No new or significant changes compared to 2016. Chest X-Ray 11/18/171549 Signed Impressions: CONCLUSION: 1. No acute abnormality or significant interval change. Caprini VTE Risk Assessment Caprini VTE Risk Assessment: Mod/High Risk (score >= 2) Caprini Risk Assessment Model Point Value = 1 Point Value = 2 Point Value = 3 Point Value = 5 Age 41-60 Minor surgery BMI > 25 kg/m2 Swollen legs Varicose veins or History of unexplained or recurrent spontaneous Oral contraceptives or hormone replacement Sepsis (< 1 month) Serious lung disease, including pneumonia (< 1 month) Abnormal pulmonary function Acute myocardial infarction Congestive heart failure (< 1 month) History of inflammatory bowel disease Medical patient at bed rest Age 61-74 Arthroscopic surgery Major open surgery (> 45 min) Laparoscopic surgery (> 45 min) Malignancy Confined to bed (> 72 hours) Immobilizing plaster cast Central venous access Age >= 75 History of VTE Family history of VTE Factor V Leiden Prothrombin [id number] Lupus anticoagulant Anticardiolipin antibodies Elevated serum homocysteine Heparin-induced thrombocytopenia Other congenital or acquired thrombophilia Stroke (< 1 month) Elective arthroplasty Hip, pelvis, or leg fracture Acute spinal cord injury (< 1 month) Prophylaxis Regimen Total Risk Factor Score Risk Level Prophylaxis Regimen 0-1 Low Early ambulation 2 Moderate Order ONE of the following: *Sequential Compression Device (SCD) *Heparin 5000 units SQ BID 3-4 Higher Order ONE of the following medications: *Heparin 5000 units SQ TID *Enoxaparin/Lovenox 40 mg SQ daily (WT < 150 kg, CrCl > 30 mL/min) *Enoxaparin/Lovenox 30 mg SQ daily (WT < 150 kg, CrCl > 10-29 mL/min) *Enoxaparin/Lovenox 30 mg SQ BID (WT < 150 kg, CrCl > 30 mL/min) AND/OR *Sequential Compression Device (SCD) 5 or more Highest Order ONE of the following medications: *Heparin 5000 units SQ TID (Preferred with Epidurals) *Enoxaparin/Lovenox 40 mg SQ daily (WT < 150 kg, CrCl > 30 mL/min) *Enoxaparin/Lovenox 30 mg SQ daily (WT < 150 kg, CrCl > 10-29 mL/min) *Enoxaparin/Lovenox 30 mg SQ BID (WT < 150 kg, CrCl > 30 mL/min) AND *Sequential Compression Device (SCD) Assessment and Plan Problem List: (1) Symptomatic bradycardia ICD Code: R00.1 - Bradycardia, unspecified Status: Acute (2) PVD (peripheral vascular disease) ICD Code: I73.9 - Peripheral vascular disease, unspecified (3) Smoking history ICD Code: Z72.0 - Smoking history Status: Acute Assessment and Plan Mr. Lewis is a pleasant 71-year-old male with a history of peripheral vascular disease, smoking who presents to the emergency department due to lightheadedness. He went to his primary care physician when he was found to have low blood pressure with low heart rate. Symptomatic bradycardia -Patient symptoms of lightheadedness likely due to bradycardia -Cardiology consulted for an evaluation. Possible need for pacemaker placement. Peripheral vascular disease Hyperlipidemia BPH -Continue aspirin 81 mg, atorvastatin 20 mg, tamsulosin 0.8 mg, finasteride 5 mg. -Continue Zoloft 100 mg p.o. daily, diazepam 5 mg p.o. 3 times daily. Full code. SCDs. Surjit Paris DO November 18, 2017 20:10
[2017-11-18 20:26] VITALS: BP 152/75; PULSE 39; RESP 16; TEMP 97.8; O2SAT 97
[2017-11-18 20:27] LABS: BILIRUBIN, URINE NEG (NEG); BLOOD, URINE NEG (NEG); GLUCOSE,URINE NEG (NEG); KETONE, URINE NEG (NEG); NITRITE,URINE NEG (NEG); URINE COLOR YELLOW (YELLW/STRAW); URINE LEUKOCYTE ESTERASE TRACE (NEG)
[2017-11-18] MEDS: SODIUM CHLORIDE 0.9% FLUSH 10 ML FLUSH IV FLUSH SCH (22:28)
[2017-11-19] VITALS (11 sets, daily range): BP systolic 123–185; BP diastolic 68–102; PULSE 39–73; RESP 16–20; TEMP 97.5–98.4; O2SAT 96–98
[2017-11-19] MEDS ORDERED: ZOLPIDEM TARTRATE 10 MG TAB PO PRN (02:00)
[2017-11-19] MEDS ORDERED: DIAZEPAM 5 MG TAB PO PRN (02:00)
[2017-11-19 06:02] LABS: AUTOMATED NEUTROPHIL # 5.3 TH/MM3 (1.8-7.7); BASOPHIL % 0.6 % (0.0-2.0); EOSINOPHIL # 0.1 TH/MM3 (0-0.4); EOSINOPHIL % 1.4 % (0.0-4.0); HEMATOCRIT 43.4 % (39.0-51.0); HEMOGLOBIN 14.5 GM/DL (13.0-17.0); LYMPH % 30.1 % (9.0-44.0); LYMPHOCYTE # 2.6 TH/MM3 (1.0-4.8); MEAN CELL VOLUME 91.3 FL (80.0-100.0); MEAN CORPUSCULAR HEMOGLOBIN 30.5 PG (27.0-34.0); MEAN CORPUSCULAR HGB CONC 33.4 % (32.0-36.0); MEAN PLATELET VOLUME 8.9 FL (7.0-11.0); MONO % 6.5 % (0.0-8.0); MONOCYTE # 0.6 TH/MM3 (0-0.9); NEUT % 61.4 % (16.0-70.0); PLATELET COUNT 138 TH/MM3 (150-450); RED BLOOD COUNT 4.76 MIL/MM3 (4.50-5.90); RED CELL DISTRIBUTION WIDTH 14.6 % (11.6-17.2); WHITE BLOOD COUNT 8.6 TH/MM3 (4.0-11.0)
[2017-11-19 06:26] LABS: BICARBONATE 28.1 MEQ/L (21.0-32.0); CALCIUM 8.5 MG/DL (8.5-10.1); CREATININE 1.17 MG/DL (0.60-1.30)
--- NOTE | 2017-11-19 08:02 | HHI.PR ---
Subjective Remarks Follow-up on patient with weakness and lightheadedness. Patient seen and examined. Patient states he had a single episode when he got up yesterday from lying in bed and developed acute onset of lightheadedness and dizziness. She was seen his primary care office and was told he had a blood pressure of 70 systolic and a heart rate in the 40s. Patient denies any previous medical history of bradycardia. He is not on any beta-pedro therapy. Patient states he has been eating and drinking his normal amount. He denies any recent illness or sick contacts. He denies any associated fever, chills, cough, vision changes, headache, weakness, numbness/tingling, loss of consciousness, chest pain, palpitations, shortness of breath, abdominal pain, dysuria, diarrhea , constipation, bowel or bladder incontinence. Patient states he got up during the night to use the bathroom and did not experience any episodes of lightheadedness or dizziness. He states he feels well this morning. Objective Vitals Vital Signs Date Time Temp Pulse Resp B/P (MAP) Pulse Ox O2 Delivery O2 Flow Rate FiO2 11/19/17 04:01 97.5 45 16 123/74 (90) 98 11/19/17 03:40 42 11/19/17 00:30 39 11/19/17 00:08 97.5 43 16 142/77 (98) 98 11/18/17 20:26 97.8 39 16 152/75 (100) 97 11/18/17 19:43 11/18/17 19:14 40 18 137/78 (97) 99 Room Air 11/18/17 18:56 44 18 146/75 (98) 97 11/18/17 15:55 99 11/18/17 15:55 42 16 132/70 (90) 98 Room Air 11/18/17 15:37 98.6 44 16 122/60 (80) 97 I/O 11/18/17 11/18/17 11/18/17 11/19/17 11/19/17 11/19/17 07:00 15:00 23:00 07:00 15:00 23:00 Intake Total 120 ml Balance 120 ml Intake Oral 120 ml Result Diagram: 11/19/17 0448 11/19/17 0448 Imaging Last Impressions Head CT 11/18/17 9870 Signed Impressions: CONCLUSION: 1. No acute intracranial pathology. 2. 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 3. Stable calcifications also noted in the right cerebellar hemisphere. 4. No new or significant changes compared to 2016. Chest X-Ray 11/18/17 1550 Signed Impressions: CONCLUSION: 1. No acute abnormality or significant interval change. Objective Remarks GENERAL: This is a well-nourished, well-developed male patient, in no apparent distress. Sleeping soundly but easily arousable to voice. SKIN: No rashes, ecchymoses or lesions. Warm and dry. HEAD: Atraumatic. Normocephalic. No temporal or scalp tenderness. EYES: Pupils equal round and reactive. No injection or drainage. ENT: Nose without bleeding or purulent drainage. Airway patent. MMM. NECK: Trachea midline. No lymphadenopathy. Supple, nontender, no meningeal signs. CARDIOVASCULAR: Regular rhythm, bradycardic without murmurs, gallops, or rubs. No JVD. RESPIRATORY: Nonlabored. Clear to auscultation. Breath sounds equal bilaterally. No wheezes, rales, or rhonchi. GASTROINTESTINAL: Abdomen soft, non-tender, nondistended. No guarding. MUSCULOSKELETAL: Extremities without clubbing, cyanosis, or edema. NEUROLOGICAL: Awake and alert. Cranial nerves II through XII grossly intact. Able to move all extremities spontaneously. No focal neurological deficits. Normal speech. PSYCHIATRIC: Calm and cooperative Procedures None A/P Problem List: (1) Symptomatic bradycardia ICD Code: R00.1 - Bradycardia, unspecified Status: Acute (2) PVD (peripheral vascular disease) ICD Code: I73.9 - Peripheral vascular disease, unspecified (3) Smoking history ICD Code: Z72.0 - Smoking history Status: Acute Assessment and Plan Mr. Lewis is a pleasant 71-year-old male with a history of peripheral vascular disease, smoking who presents to the emergency department due to lightheadedness. He went to his primary care physician when he was found to have low blood pressure with low heart rate. Symptomatic bradycardia Magnesium 2.0 -Patient symptoms of lightheadedness likely due to bradycardia -Cardiology consulted for an evaluation. Possible need for pacemaker placement. -obtain TSH level Dizziness and lightheadedness, suspect secondary to symptomatic bradycardia -Obtain B12 and phosphorus level -PT eval/tx -Obtain orthostatic BP measurements CORNELIUS, possibly secondary to dehydration which may have contributed to patient's admitting complaints of lightheadedness Creatinine improved from 1.46 to 1.17 UA unremarkable -Avoid nephrotoxic agents -Continue to monitor kidney function as indicated Peripheral vascular disease Hyperlipidemia BPH -Continue aspirin 81 mg, atorvastatin 20 mg, tamsulosin 0.8 mg, finasteride 5 mg. -Continue Zoloft 100 mg p.o. daily, diazepam 5 mg p.o. 3 times daily. Polysubstance use Patient's urine tox positive for benzodiazepines and cannabis -Discussed importance of cessation Full code. SCDs. Discharge Planning Possible discharge later today pending completion of workup and cardiology clearance Jackie Powers November 19, 2017 08:01
--- NOTE | 2017-11-19 08:28 | PD.CONS ---
HPI Consult Requested By Primary Care Physician Iker Gates MD History of Present Illness 71-year-old male with past medical history of PVD, HLD, BPH, anxiety/depression who presented after an episode of dizziness and low blood pressure. Patient states that he was feeling unsteady yesterday so he went to his PCPs office. He reports his BP was in the 70s there which concerned him and his so they went to the ED for evaluation. He has also been noted to be bradycardic with his heart rate persistently in the low 40s. He denies any recent medication changes, has been on sertraline for the past 2 years. He has never been told he has a low heart rate before. He denies any orthostatic dizziness. He denies any syncope or near syncopal sensation. EKG with sinus bradycardia, no high degree AV block. He does report that he quit smoking 2 weeks ago and since then has not been eating or drinking as much. His labs did show some mild CORNELIUS/dehydration upon admission. (Jorge Alberto Soriano) Review of Systems Negative except as stated in the HPI (Jorge Alberto Soriano) Past Family Social History Allergies: Coded Allergies: diatrizoate meglumine (Verified Allergy, Intermediate, rash, 06/10/17) Rash on body don't remember which part gadobenic acid (Verified Allergy, Intermediate, rash, 06/10/17) Rash on body don't remember which part gadodiamide (Verified Allergy, Intermediate, rash, 06/10/17) Rash on body don't remember which part gadoteridol (Verified Allergy, Intermediate, rash, 06/10/17) Rash on body don't remember which part iodixanol (Verified Allergy, Intermediate, rash, 06/10/17) Rash on body don't remember which part iohexol (Verified Allergy, Intermediate, rash, 06/10/17) Rash on body don't remember which part Past Medical History PVD, HLD, BPH, anxiety/depression Past Surgical History Cholecystectomy, hemorrhoidectomy Reported Medications Reported Meds & Active Scripts Active Reported Zantac (Ranitidine HCl) 150 Mg Tab 150 Mg PO DAILY Atorvastatin (Atorvastatin Calcium) 20 Mg Tab 20 Mg PO HS Zolpidem ER (Zolpidem Tartrate) 12.5 Mg Tab 12.5 Mg PO HS PRN Diazepam 5 Mg Tab 5 Mg PO TID PRN Finasteride 5 Mg Tab 5 Mg PO DAILY Do not crush. Sertraline (Sertraline HCl) 100 Mg Tab 100 Mg PO DAILY Flomax (Tamsulosin HCl) 0.4 Mg Cap 0.8 Mg PO HS Aspirin 81 Mg Chew 81 Mg CHEW DAILY Active Ordered Medications Current Medications Medications (Trade) Dose Ordered Sig/Florecita Route Start Time Stop Time Status Last Admin (NS Flush) 2 ml UNSCH PRN IV FLUSH 11/18/17 19:15 (NS Flush) 2 ml BID IV FLUSH 11/18/17 21:00 11/18/17 22:28 (Narcan Inj) 0.4 mg UNSCH PRN IV PUSH 11/18/17 19:15 (Milk Of Magnesia Liq) 30 ml Q12H PRN PO 11/18/17 19:15 (Senokot) 17.2 mg Q12H PRN PO 11/18/17 19:15 (Dulcolax Supp) 10 mg DAILY PRN RECTAL 11/18/17 19:15 (Lactulose Liq) 30 ml DAILY PRN PO 11/18/17 19:15 (Aspirin Chew) 81 mg DAILY CHEW 11/19/17 09:00 (Lipitor) 20 mg HS PO 11/19/17 21:00 (Valium) 5 mg TID PRN PO 11/19/17 02:00 (Proscar) 5 mg DAILY PO 11/19/17 09:00 (Zoloft) 100 mg DAILY PO 11/19/17 09:00 (Flomax) 0.8 mg HS PO 11/19/17 21:00 (Pepcid) 20 mg DAILY PO 11/19/17 09:00 (Ambien) 10 mg HS PRN PO 11/19/17 02:00 Family History No family history of Alzheimer's or Parkinson's. Social History Alcohol Use: No Tobacco Use: Former 1 PPD, quit 2 weeks ago Substance Use: Yes (MARIJUANA) (Jorge Alberto Soriano) Physical Exam Vital Signs Vital Signs Date Time Temp Pulse Resp B/P (MAP) Pulse Ox O2 Delivery O2 Flow Rate FiO2 11/19/17 04:01 97.5 45 16 123/74 (90) 98 11/19/17 03:40 42 11/19/17 00:30 39 11/19/17 00:08 97.5 43 16 142/77 (98) 98 11/18/17 20:26 97.8 39 16 152/75 (100) 97 11/18/17 19:43 11/18/17 19:14 40 18 137/78 (97) 99 Room Air 11/18/17 18:56 44 18 146/75 (98) 97 11/18/17 15:55 99 11/18/17 15:55 42 16 132/70 (90) 98 Room Air 11/18/17 15:37 98.6 44 16 122/60 (80) 97 Physical Exam GENERAL: Well-developed well-nourished. In no acute distress. NECK: No carotid bruits. No JVD. CARDIOVASCULAR: Bradycardic regular rate and rhythm. No murmur appreciated. RESPIRATORY: No accessory muscle use. Clear to auscultation. Breath sounds equal bilaterally. MUSCULOSKELETAL: No clubbing or cyanosis. No edema. NEUROLOGICAL: Awake and alert. Normal speech. Laboratory Laboratory Tests Test 11/18/17 15:50 11/18/17 20:01 11/19/17 04:48 White Blood Count 8.4 8.6 Red Blood Count 4.87 4.76 Hemoglobin 14.7 14.5 Hematocrit 44.5 43.4 Mean Corpuscular Volume 91.5 91.3 Mean Corpuscular Hemoglobin 30.1 30.5 Mean Corpuscular Hemoglobin Concent 32.9 33.4 Red Cell Distribution Width 14.4 14.6 Platelet Count 156 138 Mean Platelet Volume 9.0 8.9 Neutrophils (%) (Auto) 68.8 61.4 Lymphocytes (%) (Auto) 24.0 30.1 Monocytes (%) (Auto) 6.1 6.5 Eosinophils (%) (Auto) 0.6 1.4 Basophils (%) (Auto) 0.5 0.6 Neutrophils # (Auto) 5.8 5.3 Lymphocytes # (Auto) 2.0 2.6 Monocytes # (Auto) 0.5 0.6 Eosinophils # (Auto) 0.1 0.1 Basophils # (Auto) 0.0 0.0 CBC Comment DIFF FINAL DIFF FINAL Differential Comment Prothrombin Time 11.0 Prothromb Time International Ratio 1.1 Activated Partial Thromboplast Time 25.3 Blood Urea Nitrogen 13 18 Creatinine 1.46 1.17 Random Glucose 86 78 Total Protein 6.6 Albumin 3.7 Calcium Level 8.5 8.5 Magnesium Level 2.0 Alkaline Phosphatase 88 Aspartate Amino Transf (AST/SGOT) 20 Alanine Aminotransferase (ALT/SGPT) 43 Total Bilirubin 0.8 Sodium Level 139 142 Potassium Level 4.6 3.6 Chloride Level 107 106 Carbon Dioxide Level 24.6 28.1 Anion Gap 7 8 Estimat Glomerular Filtration Rate 48 61 Total Creatine Kinase 122 Creatine Kinase MB 1.1 Troponin I LESS THAN 0.02 Urine Color YELLOW Urine Turbidity CLEAR Urine pH 7.0 Urine Specific [place] 1.010 Urine Protein NEG Urine Glucose (UA) NEG Urine Ketones NEG Urine Occult Blood NEG Urine Nitrite NEG Urine Bilirubin NEG Urine Urobilinogen LESS THAN 2.0 Urine Leukocyte Esterase TRACE Urine RBC LESS THAN 1 Urine WBC 1 Microscopic Urinalysis Comment CULT NOT INDICATED Urine Opiates Screen NEG Urine Barbiturates Screen NEG Urine Amphetamines Screen NEG Urine Benzodiazepines Screen POS Urine Cocaine Screen NEG Urine Cannabinoids Screen POS (Jorge Alberto Soriano) Result Diagram: 11/19/17 0448 11/19/17 0448 Imaging Last Impressions Head CT 11/18/17 1550 Signed Impressions: CONCLUSION: 1. No acute intracranial pathology. 2. 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 3. Stable calcifications also noted in the right cerebellar hemisphere. 4. No new or significant changes compared to 2016. Chest X-Ray 11/18/17 1550 Signed Impressions: CONCLUSION: 1. No acute abnormality or significant interval change. (Jorge Alberto Soriano) Assessment and Plan Assessment and Plan 71-year-old male with past medical history of PVD, HLD, BPH, anxiety/depression who presented after an episode of dizziness and low blood pressure Dizziness: Possibly due to dehydration vs symptomatic bradycardia. Consider decreasing alpha pedro. Sinus bradycardia: Symptomatic? d/w Dr. Ferguson who will ask Dr. Baker to eval for possible pacer. On sertraline, could consider alternative antidepressant with less rate affect. Discussed Condition With Patient, hospitalist, Dr. Ferguson (Jorge Alberto Soriano) Assessment and Plan symptomatic bradycardia with presyncope chronotropic incompetence with fatigue no AV leann blocking agents plan for PPM NPO p MN (Esteban Ferguson MD) Jorge Alberto Soriano November 19, 2017 08:28 Esteban Ferguson MD November 19, 2017 14:50
[2017-11-19 08:55] LABS: PHOSPHORUS 3.9 MG/DL (2.5-4.9)
[2017-11-19] MEDS: FAMOTIDINE 20 MG TAB PO SCH (09:14)
[2017-11-19] MEDS: SERTRALINE HCL 100 MG TAB PO SCH (09:14)
[2017-11-19] MEDS: SODIUM CHLORIDE 0.9% FLUSH 10 ML FLUSH IV FLUSH SCH ×2 (09:15→20:25)
[2017-11-19] MEDS: ASPIRIN 81 MG CHEW TAB CHEW SCH (09:15)
[2017-11-19] MEDS: FINASTERIDE 5 MG TAB PO SCH (09:15)
[2017-11-19] MEDS ORDERED: VANCOMYCIN INJ 1,000 MG in SODIUM CHLOR 0.9% 250 ML INJ 250 ML IV SCH (13:45)
[2017-11-19] MEDS ORDERED: CHLORHEXIDINE GLUCONATE 2 % 1 PACK (2 CLOTHS) TOP SCH (13:45)
--- NOTE | 2017-11-19 13:57 | PD.CARD.PN ---
Subjective Subjective Remarks Asked by Sukumar Ferguson to evaluate patient for PPM for symptomatic bradycardia. Patient is with chronic fatigue and resting HR 40s, sinus bradycardia. No chest pain, syncope. Otherwise feels at baseline. Objective Medications Current Medications Medications (Trade) Dose Ordered Sig/Florecita Route Start Time Stop Time Status Last Admin (NS Flush) 2 ml UNSCH PRN IV FLUSH 11/18/17 19:15 (NS Flush) 2 ml BID IV FLUSH 11/18/17 21:00 11/19/17 09:15 (Narcan Inj) 0.4 mg UNSCH PRN IV PUSH 11/18/17 19:15 (Milk Of Magnesia Liq) 30 ml Q12H PRN PO 11/18/17 19:15 (Senokot) 17.2 mg Q12H PRN PO 11/18/17 19:15 (Dulcolax Supp) 10 mg DAILY PRN RECTAL 11/18/17 19:15 (Lactulose Liq) 30 ml DAILY PRN PO 11/18/17 19:15 (Aspirin Chew) 81 mg DAILY CHEW 11/19/17 09:00 11/19/17 09:15 (Lipitor) 20 mg HS PO 11/19/17 21:00 (Valium) 5 mg TID PRN PO 11/19/17 02:00 (Proscar) 5 mg DAILY PO 11/19/17 09:00 11/19/17 09:15 (Zoloft) 100 mg DAILY PO 11/19/17 09:00 11/19/17 09:14 (Flomax) 0.8 mg HS PO 11/19/17 21:00 (Pepcid) 20 mg DAILY PO 11/19/17 09:00 11/19/17 09:14 (Ambien) 10 mg HS PRN PO 11/19/17 02:00 (Habitrol 14 Mg Patch.24 Hr) 1 patch DAILY T-DERMAL 11/20/17 09:00 Miscellaneous Information 1 DAILY T-DERMAL 11/20/17 09:00 Sodium Chloride 1,000 ml @ 75 mls/hr [id number] IV 11/20/17 00:05 UNV Vancomycin HCl 1000 mg/Sodium Chloride 250 ml @ 250 mls/hr FIREBREAK CUTTER IV 11/19/17 13:45 11/23/17 13:44 UNV (Chlorhexidine 2% Cloth) 3 pack FIREBREAK CUTTER TOP 11/19/17 13:45 11/23/17 13:44 UNV Vital Signs / I&O Vital Signs Date Time Temp Pulse Resp B/P (MAP) Pulse Ox O2 Delivery O2 Flow Rate FiO2 11/19/17 12:35 41 11/19/17 12:16 97.5 43 18 138/70 (92) 97 11/19/17 08:31 40 11/19/17 04:01 97.5 45 16 123/74 (90) 98 11/19/17 03:40 42 11/19/17 00:30 39 11/19/17 00:08 97.5 43 16 142/77 (98) 98 11/18/17 20:26 97.8 39 16 152/75 (100) 97 11/18/17 19:43 11/18/17 19:14 40 18 137/78 (97) 99 Room Air 11/18/17 18:56 44 18 146/75 (98) 97 11/18/17 15:55 99 11/18/17 15:55 42 16 132/70 (90) 98 Room Air 11/18/17 15:37 98.6 44 16 122/60 (80) 97 I/O 11/18/17 11/18/17 11/18/17 11/19/17 11/19/17 11/19/17 07:00 15:00 23:00 07:00 15:00 23:00 Intake Total 120 ml Balance 120 ml Intake Oral 120 ml Laboratory Laboratory Tests Test 11/18/17 15:50 11/18/17 20:01 11/19/17 04:48 White Blood Count 8.4 TH/MM3 8.6 TH/MM3 Red Blood Count 4.87 MIL/MM3 4.76 MIL/MM3 Hemoglobin 14.7 GM/DL 14.5 GM/DL Hematocrit 44.5 % 43.4 % Mean Corpuscular Volume 91.5 FL 91.3 FL Mean Corpuscular Hemoglobin 30.1 PG 30.5 PG Mean Corpuscular Hemoglobin Concent 32.9 % 33.4 % Red Cell Distribution Width 14.4 % 14.6 % Platelet Count 156 TH/MM3 138 TH/MM3 Mean Platelet Volume 9.0 FL 8.9 FL Neutrophils (%) (Auto) 68.8 % 61.4 % Lymphocytes (%) (Auto) 24.0 % 30.1 % Monocytes (%) (Auto) 6.1 % 6.5 % Eosinophils (%) (Auto) 0.6 % 1.4 % Basophils (%) (Auto) 0.5 % 0.6 % Neutrophils # (Auto) 5.8 TH/MM3 5.3 TH/MM3 Lymphocytes # (Auto) 2.0 TH/MM3 2.6 TH/MM3 Monocytes # (Auto) 0.5 TH/MM3 0.6 TH/MM3 Eosinophils # (Auto) 0.1 TH/MM3 0.1 TH/MM3 Basophils # (Auto) 0.0 TH/MM3 0.0 TH/MM3 CBC Comment DIFF FINAL DIFF FINAL Differential Comment Prothrombin Time 11.0 SEC Prothromb Time International Ratio 1.1 RATIO Activated Partial Thromboplast Time 25.3 SEC Blood Urea Nitrogen 13 MG/DL 18 MG/DL Creatinine 1.46 MG/DL 1.17 MG/DL Random Glucose 86 MG/DL 78 MG/DL Total Protein 6.6 GM/DL Albumin 3.7 GM/DL Calcium Level 8.5 MG/DL 8.5 MG/DL Magnesium Level 2.0 MG/DL Alkaline Phosphatase 88 U/L Aspartate Amino Transf (AST/SGOT) 20 U/L Alanine Aminotransferase (ALT/SGPT) 43 U/L Total Bilirubin 0.8 MG/DL Sodium Level 139 MEQ/L 142 MEQ/L Potassium Level 4.6 MEQ/L 3.6 MEQ/L Chloride Level 107 MEQ/L 106 MEQ/L Carbon Dioxide Level 24.6 MEQ/L 28.1 MEQ/L Anion Gap 7 MEQ/L 8 MEQ/L Estimat Glomerular Filtration Rate 48 ML/MIN 61 ML/MIN Total Creatine Kinase 122 U/L Creatine Kinase MB 1.1 NG/ML Troponin I LESS THAN 0.02 NG/ML Urine Color YELLOW Urine Turbidity CLEAR Urine pH 7.0 Urine Specific [place] 1.010 Urine Protein NEG mg/dL Urine Glucose (UA) NEG mg/dL Urine Ketones NEG mg/dL Urine Occult Blood NEG Urine Nitrite NEG Urine Bilirubin NEG Urine Urobilinogen LESS THAN 2.0 MG/DL Urine Leukocyte Esterase TRACE Urine RBC LESS THAN 1 /hpf Urine WBC 1 /hpf Microscopic Urinalysis Comment CULT NOT INDICATED Urine Opiates Screen NEG Urine Barbiturates Screen NEG Urine Amphetamines Screen NEG Urine Benzodiazepines Screen POS Urine Cocaine Screen NEG Urine Cannabinoids Screen POS Phosphorus Level 3.9 MG/DL Vitamin B12 Level 311 PG/ML Thyroid Stimulating Hormone 3rd Gen 1.140 uIU/ML Imaging Last [address] 11/18/17 1550 Signed Impressions: CONCLUSION: 1. No acute intracranial pathology. 2. 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 3. Stable calcifications also noted in the right cerebellar hemisphere. 4. No new or significant changes compared to 2016. Chest X-Ray 11/18/17 1550 Signed Impressions: CONCLUSION: 1. No acute abnormality or significant interval change. Assessment and Plan Assessment and Plan Symptomatic sinus bradycardia: patient offered PPM placement therapy. Risks, benefits and alternatives discussed with patient and his at bedside. Patient wishes to proceed. He ate earlier today. Will schedule for tomorrow afternoon. Echo today to eval LVEF, suspect will be normal. Cr 1.17, Hg 14 Mich Baker DO November 19, 2017 13:57
[2017-11-19] MEDS ORDERED: SODIUM CHLORID 0.9% 500 ML IV PRN (17:15)
[2017-11-19] MEDS ORDERED: LACTATED RINGER'S 1000 ML IV PRN (17:15)
[2017-11-19] MEDS ORDERED: METOPROLOL TARTRATE 25 MG TAB PO PRN (17:15)
[2017-11-19] MEDS: TAMSULOSIN HCL 0.4 MG CAP PO SCH (20:24)
[2017-11-19] MEDS: ATORVASTATIN 20 MG TAB PO SCH (20:24)
[2017-11-19] MEDS: SODIUM CHLOR 0.45% 1000 ML INJ 1,000 ML IV SCH (23:43)
[2017-11-20] VITALS (11 sets, daily range): BP systolic 123–145; BP diastolic 68–87; PULSE 42–73; RESP 16–19; TEMP 97.6–98.2; O2SAT 96–98
[2017-11-20] MEDS ORDERED: ACETAMINOPHEN 325 MG TAB PO PRN (06:15)
--- NOTE | 2017-11-20 07:30 | PD.CARD.PN ---
Subjective Subjective Remarks Still complains of fatigue. No chest pain. Telemetry continues to show persistent sinus bradycardia with rate into the 30s overnight. For pacemaker placement today, all questions answered. (Jorge Alberto Soriano) Objective Medications Current Medications Medications (Trade) Dose Ordered Sig/Florecita Route Start Time Stop Time Status Last Admin (NS Flush) 2 ml UNSCH PRN IV FLUSH 11/18/17 19:15 (NS Flush) 2 ml BID IV FLUSH 11/18/17 21:00 11/19/17 20:25 (Narcan Inj) 0.4 mg UNSCH PRN IV PUSH 11/18/17 19:15 (Milk Of Magnesia Liq) 30 ml Q12H PRN PO 11/18/17 19:15 (Senokot) 17.2 mg Q12H PRN PO 11/18/17 19:15 (Dulcolax Supp) 10 mg DAILY PRN RECTAL 11/18/17 19:15 (Lactulose Liq) 30 ml DAILY PRN PO 11/18/17 19:15 (Aspirin Chew) 81 mg DAILY CHEW 11/19/17 09:00 11/19/17 09:15 (Lipitor) 20 mg HS PO 11/19/17 21:00 11/19/17 20:24 (Valium) 5 mg TID PRN PO 11/19/17 02:00 (Proscar) 5 mg DAILY PO 11/19/17 09:00 11/19/17 09:15 (Zoloft) 100 mg DAILY PO 11/19/17 09:00 11/19/17 09:14 (Flomax) 0.8 mg HS PO 11/19/17 21:00 11/19/17 20:24 (Pepcid) 20 mg DAILY PO 11/19/17 09:00 11/19/17 09:14 (Ambien) 10 mg HS PRN PO 11/19/17 02:00 (Habitrol 14 Mg Patch.24 Hr) 1 patch DAILY T-DERMAL 11/20/17 09:00 Miscellaneous Information 1 DAILY T-DERMAL 11/20/17 09:00 Sodium Chloride 1,000 ml @ 75 mls/hr [id number] IV 11/20/17 00:05 11/19/17 23:43 Vancomycin HCl 1000 mg/Sodium Chloride 250 ml @ 250 mls/hr LEAD [employer] ENGINEER IV 11/19/17 13:45 11/23/17 13:44 (Chlorhexidine 2% Cloth) 3 pack LEAD [employer]ER TOP 11/19/17 13:45 11/23/17 13:44 Lactated Ringer's 1,000 ml @ 30 mls/hr Q24H PRN IV 11/19/17 17:15 11/22/17 17:14 Sodium Chloride 500 ml @ 30 mls/hr [id number] PRN IV 11/19/17 17:15 11/22/17 17:14 (Lopressor) 25 mg LEAD [employer] ENG[employer]ER PRN PO 11/19/17 17:15 11/22/17 17:14 (Tylenol) 650 mg Q4H PRN PO 11/20/17 06:15 11/20/17 06:11 Vital Signs / I&O Vital Signs Date Time Temp Pulse Resp B/P (MAP) Pulse Ox O2 Delivery O2 Flow Rate FiO2 11/20/17 03:17 98.2 44 16 123/72 (89) 96 11/19/17 23:36 97.9 46 16 127/68 (87) 98 11/19/17 19:23 97.7 45 16 128/70 (89) 96 11/19/17 17:18 43 11/19/17 15:00 98.4 41 20 150/80 (103) 97 11/19/17 12:35 41 11/19/17 12:16 97.5 43 18 138/70 (92) 97 11/19/17 08:31 40 Physical Exam GENERAL: Well-developed well-nourished. In no acute distress. NECK: No carotid bruits. No JVD. CARDIOVASCULAR: Bradycardic regular rate and rhythm. No murmur appreciated. RESPIRATORY: No accessory muscle use. Clear to auscultation. Breath sounds equal bilaterally. MUSCULOSKELETAL: No clubbing or cyanosis. No edema. NEUROLOGICAL: Awake and alert. Normal speech. Imaging Last Impressions Head CT 11/18/17 155 Signed Impressions: CONCLUSION: 1. No acute intracranial pathology. 2. 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 3. Stable calcifications also noted in the right cerebellar hemisphere. 4. No new or significant changes compared to 2016. Chest X-Ray 11/18/17 1550 Signed Impressions: CONCLUSION: 1. No acute abnormality or significant interval change. (Long,Jorge Alberto D. PA) Assessment and Plan Assessment and Plan 71-year-old male with past medical history of PVD, HLD, BPH, anxiety/depression who presented after an episode of dizziness and low blood pressure Symptomatic sinus bradycardia with presyncope: N.p.o. for pacemaker placement later today. (Jorge Alberto Soriano) Jorge Alberto Soriano November 20, 2017 07:30 Mich Baker DO November 20, 2017 13:05
[2017-11-20] MEDS: ASPIRIN 81 MG CHEW TAB CHEW SCH (08:26)
[2017-11-20] MEDS: FAMOTIDINE 20 MG TAB PO SCH (08:26)
--- NOTE | 2017-11-20 08:26 | EKG ---
Date Performed: 11/18/2017 Time Performed: 15:50:29 PTAGE: 71 years EKG: SINUS BRADYCARDIA POSSIBLE LEFT ATRIAL ENLARGEMENT SEPTAL MYOCARDIAL INFARCTION ABNORMAL EC G NO PREVIOUS TRACING DOCTOR: Jess Bruce Interpretating Date/Time 11/20/2017 08:17:39
[2017-11-20] MEDS: FINASTERIDE 5 MG TAB PO SCH (08:27)
[2017-11-20] MEDS: SODIUM CHLORIDE 0.9% FLUSH 10 ML FLUSH IV FLUSH SCH ×2 (08:27→20:55)
[2017-11-20] MEDS: NICOTINE 14 MG/24 HR PATCH T-DERMAL SCH (08:28)
[2017-11-20] MEDS: SERTRALINE HCL 100 MG TAB PO SCH (08:29)
--- NOTE | 2017-11-20 08:52 | HHI.PR ---
Subjective Remarks Follow-up on patient with symptomatic bradycardia. Patient seen and examined. Patient denies any new medical complaints. He denies any recurrence of dizziness or lightheadedness since admission. He denies any fever or chills. Denies any nausea, vomiting or abdominal pain. Denies any chest pain or shortness of breath. Patient is currently n.p.o. and scheduled to undergo pacemaker placement later today. Objective Vitals Vital Signs Date Time Temp Pulse Resp B/P (MAP) Pulse Ox O2 Delivery O2 Flow Rate FiO2 11/20/17 08:06 42 11/20/17 07:11 15 11/20/17 03:17 98.2 44 16 123/72 (89) 96 11/19/17 23:36 97.9 46 16 127/68 (87) 98 11/19/17 19:23 97.7 45 16 128/70 (89) 96 11/19/17 17:18 43 11/19/17 15:00 98.4 41 20 150/80 (103) 97 11/19/17 12:35 41 11/19/17 12:16 97.5 43 18 138/70 (92) 97 Result Diagram: 11/19/17 0448 11/19/17 0448 Imaging Last Impressions Head CT 11/18/17 1550 Signed Impressions: CONCLUSION: 1. No acute intracranial pathology. 2. 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 3. Stable calcifications also noted in the right cerebellar hemisphere. 4. No new or significant changes compared to 2016. Chest X-Ray 11/18/17 1550 Signed Impressions: CONCLUSION: 1. No acute abnormality or significant interval change. Objective Remarks GENERAL: This is a well-nourished, well-developed male patient, in no apparent distress. Sleeping soundly but easily arousable to voice. SKIN: No rashes, ecchymoses or lesions. Warm and dry. HEAD: Atraumatic. Normocephalic. EYES: EOMI. No injection or drainage. ENT: Nose without bleeding or purulent drainage. Airway patent. MMM. NECK: Trachea midline. No lymphadenopathy. Supple, nontender, no meningeal signs. CARDIOVASCULAR: Regular rhythm, bradycardic without murmurs, gallops, or rubs. No JVD. RESPIRATORY: Nonlabored. Clear to auscultation. Breath sounds equal bilaterally. No wheezes, rales, or rhonchi. GASTROINTESTINAL: Abdomen soft, non-tender, nondistended. No guarding. MUSCULOSKELETAL: Extremities without clubbing, cyanosis, or edema. NEUROLOGICAL: Awake and alert. Cranial nerves II through XII grossly intact. Able to move all extremities spontaneously. No focal neurological deficits. Normal speech. PSYCHIATRIC: Calm and cooperative Procedures None A/P Problem List: (1) Symptomatic bradycardia ICD Code: R00.1 - Bradycardia, unspecified Status: Acute (2) PVD (peripheral vascular disease) ICD Code: I73.9 - Peripheral vascular disease, unspecified (3) Smoking history ICD Code: Z72.0 - Smoking history Status: Acute Assessment and Plan Mr. Lewis is a pleasant 71-year-old male with a history of peripheral vascular disease, smoking who presents to the emergency department due to lightheadedness. He went to his primary care physician when he was found to have low blood pressure with low heart rate. Symptomatic sinus bradycardia, heart rate in the low to mid 40s Magnesium 2.0 TSH 1.140 -Patient symptoms of lightheadedness likely due to bradycardia -Cardiology following, scheduled for pacemaker placement later today -keep NPO -Follow-up on echocardiogram results as ordered by cardiology Dizziness and lightheadedness, suspect secondary to symptomatic bradycardia No recurrence since admission Orthostatics negative -B12 level low normal, give single dose 1000mcg now -Continue fall precautions CORNELIUS, possibly secondary to dehydration which may have contributed to patient's admitting complaints of lightheadedness Creatinine improved from 1.46 to 1.17 UA unremarkable -Avoid nephrotoxic agents -Continue to monitor kidney function as indicated Peripheral vascular disease Hyperlipidemia BPH -Continue aspirin 81 mg, atorvastatin 20 mg, tamsulosin 0.8 mg, finasteride 5 mg. -Continue Zoloft 100 mg p.o. daily, diazepam 5 mg p.o. 3 times daily. Polysubstance use Patient's urine tox positive for benzodiazepines and cannabis -Discussed importance of cessation Full code. SCDs. Discharge Planning Not ready for discharge. Undergoing pacemaker placement today. Discharge pending cardiology clearance. Jackie Powers November 20, 2017 08:52
[2017-11-20] MEDS ORDERED: CYANOCOBALAMIN 1000 MCG/ML VIAL IM ONE (09:00)
[2017-11-20] MEDS: REMOVE OLD PATCH T-DERMAL SCH (09:00)
[2017-11-20] MEDS: SODIUM CHLOR 0.45% 1000 ML INJ 1,000 ML IV SCH ×2 (10:41→20:51)
[2017-11-20] MEDS ORDERED: PHENYLEPH/NS 1000 MCG/10 ML SYR IV ONE (12:00)
[2017-11-20] MEDS ORDERED: PROPOFOL 200 MG/20 ML AMP IV ONE (12:00)
[2017-11-20] MEDS ORDERED: ePHEDrine/NS 25 MG/5 ML SYRINGE IV ONE (12:00)
[2017-11-20] MEDS ORDERED: ONDANSETRON HCL 4 MG/2 ML VIAL IV ONE (12:00)
[2017-11-20] MEDS ORDERED: LIDOCAINE HCL 1% PF 5 ML SYRINGE OTHER ONE (12:00)
[2017-11-20] MEDS ORDERED: DEXAMETHASONE SOD PHOS 4 MG/ML VIAL IV ONE (12:00)
[2017-11-20] MEDS ORDERED: ceFAZolin INJ 1,000 MG VIAL ONE (12:57)
[2017-11-20] MEDS ORDERED: VANCOMYCIN HCL 1000 MG VIAL ONE (12:57)
[2017-11-20] MEDS ORDERED: LIDOCAINE HCL 2% 20 ML VIAL ONE (12:57)
[2017-11-20] MEDS ORDERED: SODIUM CHLOR 0.9% 250 ML INJ 250 ML ONE (12:57)
[2017-11-20] MEDS ORDERED: VANCOMYCIN 500 MG VIAL ONE (12:57)
--- NOTE | 2017-11-20 13:59 | ECHRPT ---
Indication: SOB CONCLUSIONS Normal left ventricular size. Wall thickness is normal. The left ventricular systolic function is normal with an estimated ejection fraction in the range of 55-60%. Mitral annular calcification is present. Trace mitral valve regurgitation. The pulmonary valve is not well visualized. BP: / HR: Rhythm: MEASUREMENTS (Male / Female) Normal Values Technical Quality: 2D ECHO LV Diastolic Diameter PLAX 4.8 cm 4.2 - 5.9 / 3.9 - 5.3 cm LV Systolic Diameter PLAX 3.7 cm IVS Diastolic Thickness 0.8 cm 0.6 - 1.0 / 0.6 - 0.9 cm LVPW Diastolic Thickness 0.7 cm 0.6 - 1.0 / 0.6 - 0.9 cm LV Relative Wall Thickness 0.3 M-MODE Aortic Root Diameter MM 3.3 cm AV Cusp Separation MM 1.9 cm DOPPLER Mitral E Point Velocity 69.1 cm/s Mitral A Point Velocity 45.9 cm/s Mitral E to A Ratio 1.5 TR Peak Velocity 206.0 cm/s TR Peak Gradient 17.0 mmHg FINDINGS LEFT VENTRICLE Normal left ventricular size. Wall thickness is normal. The left ventricular systolic function is normal with an estimated ejection fraction in the range of 55-60%. RIGHT VENTRICLE Normal right ventricular size and systolic function. LEFT ATRIUM The left atrial size is normal. RIGHT ATRIUM The right atrial size is normal. ATRIAL SEPTUM Normal atrial septal thickness without atrial level shunting by limited color doppler interrogation. AORTA The aortic root and proximal ascending aorta are normal in size on limited imaging. MITRAL VALVE Mitral annular calcification is present. Trace mitral valve regurgitation. AORTIC VALVE Trileaflet aortic valve. No aortic valve stenosis or regurgitation. TRICUSPID VALVE Structurally normal tricuspid valve. No tricuspid valve stenosis or regurgitation. PULMONARY VALVE The pulmonary valve is not well visualized. VESSELS The inferior vena cava is normal in size. PERICARDIUM No pericardial effusion. Esteban Ferguson MD, FACC (Electronically Signed) Final Date:20 Nov 2017 13:58
[2017-11-20] MEDS ORDERED: DO NOT ADM ANY ANTICOAGULANT DRUGS PRN (15:24)
[2017-11-20] MEDS ORDERED: *morphine SULFATE 4 MG/ML PERIprocedure ONLY ONE (15:51)
--- NOTE | 2017-11-20 15:58 | RADRPT ---
EXAM DATE: 11/20/2017 3:55 PM EDT AGE/SEX: 71 years / Male INDICATIONS: R/O PNX CLINICAL DATA: This is the patient's initial encounter. Patient reports that signs and symptoms have been present for 1 day and indicates a pain score of Nonresponsive. MEDICAL/SURGICAL HISTORY: None. None. COMPARISON: [facility] [place], CHEST SINGLE AP, 11/18/2017. . FINDINGS: A single AP view of the chest demonstrates interval placement of a right-sided transvenous pacemaker. Right atrial and ventricular leads appear to be in good position. Lungs remain well expanded without evidence of pneumothorax. There is no evidence of acute airspace d isease. Heart and mediastinal structures are unremarkable. CONCLUSION: 1. Status post cardiac pacemaker insertion. 2. Stable chest without evidence of acute process. Electronically signed by: Wilmer Vásquez MD 11/20/2017 3:57 PM EDT
[2017-11-20] MEDS ORDERED: ACETAMINOPHEN/CODEINE 300 MG/30 MG TAB PO PRN ×2 (16:00)
--- NOTE | 2017-11-20 17:21 | MP ---
cc: Mich Baker DO DATE OF OPERATION: 11/20/2017 DATE OF PROCEDURE: 11/20/2017 PROCEDURE: Dual chamber permanent pacemaker implantation, Biotronik Edora 8 DR-T, MRI conditional. SURGEON: Mich Baker DO INDICATION FOR PROCEDURE: Symptomatic bradycardia. PREOPERATIVE DIAGNOSIS: Sinus bradycardia, symptomatic. POSTOPERATIVE DIAGNOSIS: Successful implantation of a dual chamber permanent pacemaker via the right upper chest wall with a subcutaneous pocket generator placement. ANESTHESIA: General anesthesia and local combination. Approximately 20 mL of 1% Xylocaine and 0.25% Marcaine in a 50:50 mixture were used for local anesthetic. PROCEDURES PERFORMED: 1. Implantation of pacemaker generator, Biotronik Edora 8 DR-T, model #663484, serial #[id number]. 2. Implantation of right atrial pacing lead, Biotronik Solia S45, model #298167, serial #[id number]. 3. Implantation of right ventricular pacing lead, Biotronik Solia S53, model #685545, serial #[id number]. 4. Formation of pulse generator pocket in the subcutaneous tissue at the right upper chest wall. ESTIMATED BLOOD LOSS: Less than 20 mL. DYE LOAD: None. ANTIBIOTICS: Ancef 1 gram of vancomycin intravenously and in an irrigation solution. INFORMED CONSENT: Prior to the procedure, the risks, benefits, and alternatives of the procedure were discussed with the patient and family in detail who agreed to proceed with the procedure. Risks including, but not limited to, bleeding, hematoma, infection, pneumothorax, lead dislodgement, arrhythmia perforation of cardiac chamber and were discussed with the patient, who agreed to proceed with the procedure. PROCEDURE IN DETAIL: After informed consent was obtained, the patient was brought to the [facility] EP lab #6 in a postabsorptive state. The patient's right chest was prepped and draped in usual sterile fashion. A timeout was taken in order to verify the patient, procedure and preprocedure labs. Using a 10 blade, a small horizontal incision was made 2 cm inferior to the right clavicle, followed by a combination of sharp and blunt dissection and electrocautery for pocket formation. Using a finder needle under fluoroscopic guidance, the right subclavian vein was cannulated and an appropriate size SafeSheath introducer. A J-tipped guidewire was advanced into the right-sided venous system verified with the tip of the wire able to go into the inferior vena cava under fluoroscopic guidance and then the wire was pulled back. A second wire was placed into the venous system using the same technique. An appropriate size SafeSheath introducer was then used to place the right ventricular lead at the level of the right atrium. Using a combination of straight and curved stylets, the right ventricular lead was placed at the level of the RV apex. The lead was actively fixated, tested and found to be satisfactory and sutured to the pectoralis muscle to prevent migration with nonabsorbable Ethibond 0 suture x 2 sutures over a suture sleeve. The appropriate size SafeSheath introducer was then used to place the right atrial lead to the level of the right atrium. The J-tip stylet was placed to appropriately position the right atrial lead into the appendage. The introducer was then removed. The lead was actively fixated, tested and found to be satisfactory and sutured into the pectoralis muscle to prevent migration with nonabsorbable Ethibond 0 suture x 2 sutures over a suture sleeve. The pulse generator was then connected to the leads. The pocket was then irrigated with copious amounts of antibiotic containing saline solution. The device was placed into the pocket with excess leads being placed posterior to the device in the pocket. The device was sutured to the pectoralis muscle through the suture hole in the header of the device to prevent migration with nonabsorbable Ethibond 0 suture. The pocket was then closed with 2 interrupted layers of 3-0 Vicryl through the subcutaneous tissue, followed by the skin being closed with 4-0 Monocryl with the knots being tied on either end external to the incision. Steri-Strips, Telfa pad and Tegaderm were subsequently applied. The patient tolerated the procedure well with no apparent complications. The patient was transferred to the PACU for post-procedure monitoring prior to being transferred to the telemetry floor for further monitoring. MEASURED DATA: The right atrial lead measures 3.1 millivolt P-wave, 1.6 volt threshold at 0.4 milliseconds pulse width, 502 ohms impedance. The right ventricular lead measures a 15.3 millivolt R-wave, 0.7 volt threshold at 0.4 milliseconds pulse width, 780 ohms impedance. The device was programmed DDD with lower rate limit 60 BPM, upper tracking limit 130 with rate response. DO JASON Mena , 04:55 PM , 05:20 PM
[2017-11-20] MEDS: TAMSULOSIN HCL 0.4 MG CAP PO SCH (20:54)
[2017-11-20] MEDS: ATORVASTATIN 20 MG TAB PO SCH (20:55)
[2017-11-21] VITALS (14 sets, daily range): BP systolic 109–129; BP diastolic 66–80; PULSE 60–73; RESP 16–18; TEMP 97.8–98.1; O2SAT 96–97
[2017-11-21] MEDS: VANCOMYCIN INJ 1,000 MG in SODIUM CHLOR 0.9% 250 ML INJ 250 ML IV SCH ×2 (00:51→11:51)
[2017-11-21] MEDS: SODIUM CHLORIDE 0.9% FLUSH 10 ML FLUSH IV FLUSH SCH (09:00)
[2017-11-21] MEDS: REMOVE OLD PATCH T-DERMAL SCH (09:00)
[2017-11-21] MEDS: ASPIRIN 81 MG CHEW TAB CHEW SCH (09:31)
[2017-11-21] MEDS: SERTRALINE HCL 100 MG TAB PO SCH (09:31)
[2017-11-21] MEDS: NICOTINE 14 MG/24 HR PATCH T-DERMAL SCH (09:31)
[2017-11-21] MEDS: FAMOTIDINE 20 MG TAB PO SCH (09:31)
[2017-11-21] MEDS: FINASTERIDE 5 MG TAB PO SCH (09:31)
--- NOTE | 2017-11-21 10:57 | HHI.PR ---
Subjective Remarks awake and alert no complains up and ambulating already telemetry- paced rhythm Objective Vitals Vital Signs Date Time Temp Pulse Resp B/P (MAP) Pulse Ox O2 Delivery O2 Flow Rate FiO2 11/21/17 10:18 16 11/21/17 08:00 97.8 67 16 119/75 (90) 96 11/21/17 08:00 64 11/21/17 06:00 62 11/21/17 05:12 69 16 109/66 (80) 96 11/21/17 05:00 62 11/21/17 04:00 60 11/21/17 03:00 66 11/21/17 02:00 62 11/21/17 01:00 60 11/21/17 00:00 64 11/21/17 00:00 73 18 116/71 (86) 97 11/20/17 23:00 61 11/20/17 22:00 64 11/20/17 21:00 66 11/20/17 20:00 62 11/20/17 19:00 97.8 64 16 125/72 (89) 98 11/20/17 17:00 98.2 43 19 141/87 (105) 98 11/20/17 16:30 97.6 83 22 145/91 (109) 96 Nasal Cannula 2 11/20/17 16:15 81 22 154/87 (109) 96 Nasal Cannula 2 11/20/17 16:00 81 14 159/87 (111) 97 Nasal Cannula 2 11/20/17 16:00 60 11/20/17 15:45 79 12 169/88 (115) 97 Nasal Cannula 2 11/20/17 15:30 74 16 167/84 (111) 98 Nasal Cannula 2 11/20/17 15:20 97.7 63 19 139/63 (88) 97 Nasal Cannula 3 11/20/17 12:00 98.2 43 19 145/68 (93) 98 I/O 11/20/17 11/20/17 11/20/17 11/21/17 11/21/17 11/21/17 07:00 15:00 23:00 07:00 15:00 23:00 Intake Total 0 ml 240 ml Output Total 501 ml Balance -501 ml 240 ml Intake Oral 0 ml 240 ml IV Total 0 ml Output Urine Total 500 ml Stool Total 1 ml # Voids 1 1 # Bowel Movements 1 0 Result Diagram: 5/24/18 0448 11/19/17 0448 Imaging Last Impressions Chest X-Ray 11/20/17 0000 Signed Impressions: CONCLUSION: 1. Status post cardiac pacemaker insertion. 2. Stable chest without evidence of acute process. Head CT 11/18/17 1550 Signed Impressions: CONCLUSION: 1. No acute intracranial pathology. 2. 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 3. Stable calcifications also noted in the right cerebellar hemisphere. 4. No new or significant changes compared to 2016. Objective Remarks awake and alert, no acute distress anicteric lungs- no rales regular rhythm abdomen soft nontender UE- S/S in place, good pulses LE no edema Procedures 11/20- 1. Implantation of pacemaker generator, SlideShare Edora 8 DR-T, model #486905, serial #[id number]. 2. Implantation of right atrial pacing lead, Callix [employer] Solia S45, model #845348, serial #[id number]. 3. Implantation of right ventricular pacing lead, Biotronik Solia S53, model #566563, serial #[id number]. 4. Formation of pulse generator pocket in the subcutaneous tissue at the right upper chest wall. A/P Problem List: (1) Symptomatic bradycardia ICD Code: R00.1 - Bradycardia, unspecified Status: Acute (2) PVD (peripheral vascular disease) ICD Code: I73.9 - Peripheral vascular disease, unspecified (3) Smoking history ICD Code: Z72.0 - Smoking history Status: Acute Assessment and Plan Mr. Lewis is a pleasant 71-year-old male with a history of peripheral vascular disease, smoking who presents to the emergency department due to lightheadedness. He went to his primary care physician when he was found to have low blood pressure with low heart rate. S/P PM placement 11/20 for symptomatic bradycardia Magnesium 2.0 TSH 1.140 - up and ambulating- asymptomatic telemetry- paced rhythm CORNELIUS, possibly secondary to dehydration - Improved Creatinine improved from 1.46 to 1.17 UA unremarkable -Avoid nephrotoxic agents Peripheral vascular disease Hyperlipidemia BPH -Continue aspirin 81 mg, atorvastatin 20 mg, tamsulosin 0.8 mg, finasteride 5 mg. -Continue Zoloft 100 mg p.o. daily, diazepam 5 mg p.o. 3 times daily. Polysubstance use Patient's urine tox positive for benzodiazepines and cannabis -Discussed importance of cessation DC home today if cleared with Cardiology Weight bearing astolerated. no heavy lifting Diet regular,. counselled on pokysubstance abuse PCP ffup in 1 week OP ff up with Cardiology Rx- written for Keflex 500 mg bid x 7 days per Cardiology Janki Bermudez MD November 21, 2017 10:57
[2017-11-21] MEDS: SODIUM CHLOR 0.45% 1000 ML INJ 1,000 ML IV SCH (12:20)
--- NOTE | 2017-11-21 12:46 | PD.CARD.PN ---
Subjective Subjective Remarks pt is s/p PPM yesterday, tolerated well. normal functioning device by interrogation this am. Small hematoma. No pain. echo 11/20: EF 55-60% mild TR otherwise normal. Objective Medications Current Medications Medications (Trade) Dose Ordered Sig/Florecita Route Start Time Stop Time Status Last Admin (NS Flush) 2 ml UNSCH PRN IV FLUSH 11/18/17 19:15 (NS Flush) 2 ml BID IV FLUSH 11/18/17 21:00 11/21/17 09:00 (Narcan Inj) 0.4 mg UNSCH PRN IV PUSH 11/18/17 19:15 (Milk Of Magnesia Liq) 30 ml Q12H PRN PO 11/18/17 19:15 (Senokot) 17.2 mg Q12H PRN PO 11/18/17 19:15 (Dulcolax Supp) 10 mg DAILY PRN RECTAL 11/18/17 19:15 (Lactulose Liq) 30 ml DAILY PRN PO 11/18/17 19:15 (Aspirin Chew) 81 mg DAILY CHEW 11/19/17 09:00 11/21/17 09:31 (Lipitor) 20 mg HS PO 11/19/17 21:00 11/20/17 20:55 (Valium) 5 mg TID PRN PO 11/19/17 02:00 (Proscar) 5 mg DAILY PO 11/19/17 09:00 11/21/17 09:31 (Zoloft) 100 mg DAILY PO 11/19/17 09:00 11/21/17 09:31 (Flomax) 0.8 mg HS PO 11/19/17 21:00 11/20/17 20:54 (Pepcid) 20 mg DAILY PO 11/19/17 09:00 11/21/17 09:31 (Ambien) 10 mg HS PRN PO 11/19/17 02:00 (Habitrol 14 Mg Patch.24 Hr) 1 patch DAILY T-DERMAL 11/20/17 09:00 11/21/17 09:31 Miscellaneous Information 1 DAILY T-DERMAL 11/20/17 09:00 11/21/17 09:00 Sodium Chloride 1,000 ml @ 75 mls/hr [id number] IV 11/20/17 00:05 11/20/17 10:41 Vancomycin HCl 1000 mg/Sodium Chloride 250 ml @ 250 mls/hr ACQUISITION PROFESSIONAL IV 11/19/17 13:45 11/23/17 13:44 (Chlorhexidine 2% Cloth) 3 pack ACQUISITION PROFESSIONAL TOP 11/19/17 13:45 11/23/17 13:44 Lactated Ringer's 1,000 ml @ 30 mls/hr Q24H PRN IV 11/19/17 17:15 11/22/17 17:14 Sodium Chloride 500 ml @ 30 mls/hr [id number] PRN IV 11/19/17 17:15 11/22/17 17:14 (Lopressor) 25 mg ACQUISITION PROFESSIONAL PRN PO 11/19/17 17:15 11/22/17 17:14 (Tylenol) 650 mg Q4H PRN PO 11/20/17 06:15 11/20/17 06:11 Vancomycin HCl 1000 mg/Sodium Chloride 250 ml @ 250 mls/hr Q12H IV 11/21/17 01:00 11/21/17 13:59 11/21/17 11:51 (Tylenol-Codeine #3) 1 tab Q4H PRN PO 11/20/17 16:00 (Tylenol-Codeine #3) 2 tab Q4H PRN PO 11/20/17 16:00 11/21/17 09:31 ([facility] [place], [place] Nursing Information) ALL NURSING DEPARTME... UNSCH PRN .XX 11/20/17 15:24 11/21/17 15:23 Vital Signs / I&O Vital Signs Date Time Temp Pulse Resp B/P (MAP) Pulse Ox O2 Delivery O2 Flow Rate FiO2 11/21/17 12:00 98.1 62 18 129/80 (96) 96 11/21/17 12:00 63 11/21/17 11:00 62 11/21/17 10:18 16 11/21/17 10:00 62 11/21/17 09:00 66 11/21/17 08:00 97.8 67 16 119/75 (90) 96 11/21/17 08:00 64 11/21/17 07:00 62 11/21/17 06:00 62 11/21/17 05:12 69 16 109/66 (80) 96 11/21/17 05:00 62 11/21/17 04:00 60 11/21/17 03:00 66 11/21/17 02:00 62 11/21/17 01:00 60 11/21/17 00:00 64 11/21/17 00:00 73 18 116/71 (86) 97 11/20/17 23:00 61 11/20/17 22:00 64 11/20/17 21:00 66 11/20/17 20:00 62 11/20/17 19:00 97.8 64 16 125/72 (89) 98 11/20/17 17:00 98.2 43 19 141/87 (105) 98 11/20/17 16:30 97.6 83 22 145/91 (109) 96 Nasal Cannula 2 11/20/17 16:15 81 22 154/87 (109) 96 Nasal Cannula 2 11/20/17 16:00 81 14 159/87 (111) 97 Nasal Cannula 2 11/20/17 16:00 60 11/20/17 15:45 79 12 169/88 (115) 97 Nasal Cannula 2 11/20/17 15:30 74 16 167/84 (111) 98 Nasal Cannula 2 11/20/17 15:20 97.7 63 19 139/63 (88) 97 Nasal Cannula 3 I/O 11/20/17 11/20/17 11/20/17 11/21/17 11/21/17 11/21/17 07:00 15:00 23:00 07:00 15:00 23:00 Intake Total 0 ml 240 ml Output Total 501 ml Balance -501 ml 240 ml Intake Oral 0 ml 240 ml IV Total 0 ml Output Urine Total 500 ml Stool Total 1 ml # Voids 1 1 # Bowel Movements 1 0 Physical Exam Gen: pleasant aox3 CV: reg +s1/s2 Ext: no edema Chest: CTAB, PPM right chest wall, small hematoma, dressing CDI Abd: soft Imaging CXR with no acute cardiopulmonary process. s/p RA/RV PPM leads Assessment and Plan Assessment and Plan Symptomatic sinus bradycardia: patient s/p duel chamber PPM 11/19 tolerated well with normal function device. small hematoma. Rec: pressure dressing today, family to remove tomorrow maintaining overlying dressing until f/u with me at [facility] cardiology scheduled 12/02/17 at 11:00 am continue ASA, atorvastatin. d/c home today. Mich Baker DO November 21, 2017 12:46
[2017-11-21] MEDS ORDERED: CEPH-460 PO (12:53)
--- NOTE | 2017-11-21 15:17 | EKG ---
Date Performed: 11/20/2017 Time Performed: 15:40:29 PTAGE: 71 years EKG: ELECTRONIC ATRIAL PACEMAKER MODERATE ST DEPRESSION ABNORMAL ECG Compared to PREVIOUS TRACING , sinus bradycardia has been replaced by electronic atrial pacing. The p oor initial anterior forces seen on the prior tracing are slightly improved in V2 and V3. PREVIOUS TR ACIN11/18/2017 15.50 DOCTOR: Jed Bush Interpretating Date/Time 11/21/2017 15:16:35
== END 2017-11-21 13:29 | disposition home or self-care (01) ==
LOC: NEPE 15:24 → NEDA 19:03 → NEPGCP 19:58 → HCIS 11-20 13:11
PROVIDERS: ADMIT Internal Medicine; ATTEND Internal Medicine
DX: I49.5 Sick sinus syndrome (principal); R00.2 Palpitations; R41.0 Disorientation, unspecified; R51 Headache; R42 Dizziness and giddiness; E86.0 Dehydration; I73.9 Peripheral vascular disease, unspecified; S09.90XA Unspecified injury of head, initial encounter; F17.210 Nicotine dependence, cigarettes, uncomplicated; F12.90 Cannabis use, unspecified, uncomplicated; R79.1 Abnormal coagulation profile; W22.01XA Walked into wall, initial encounter; Z79.899 Other long term (current) drug therapy
CPT/HCPCS: 00530; 33208; 70450; 71045; 80048; 80053; 80307; 81001; 82550; 82552; 82607; 83735; 84100; 84443; 84484; 85025; 85610; 85730; 93005; 93306; 96361; 96365; 96366; 97163; 99285; C1779; C1785; G0378; G8987; G8988; J0690; J1100; J2270; J2370; J2405; J3010; J3370; J3420; J7050

== ENCOUNTER 2017-11-21 15:58 | Emergency (ER) | payer BC ==
[~2017-11-21] VITALS: Ht 190.5 cm; Wt 74.0 kg
[~2017-11-21 15:58] MED LIST changes: +CEPH-460 PO; +ZANT150T2 PO
[2017-11-21 16:07] VITALS: BP 131/86; PULSE 63; RESP 19; TEMP 99; O2SAT 98
[2017-11-21 16:11] VITALS: O2SAT 99
[2017-11-21] MEDS ORDERED: SODIUM CHLORIDE 0.9% FLUSH 10 ML FLUSH IVF PRN (16:15)
[2017-11-21 16:40] LABS: AUTOMATED NEUTROPHIL # 11.6 TH/MM3 (1.8-7.7); BASOPHIL % 0.3 % (0.0-2.0); EOSINOPHIL # 0.1 TH/MM3 (0-0.4); EOSINOPHIL % 0.9 % (0.0-4.0); HEMATOCRIT 43.2 % (39.0-51.0); HEMOGLOBIN 14.4 GM/DL (13.0-17.0); LYMPH % 14.2 % (9.0-44.0); LYMPHOCYTE # 2.1 TH/MM3 (1.0-4.8); MEAN CELL VOLUME 91.3 FL (80.0-100.0); MEAN CORPUSCULAR HEMOGLOBIN 30.4 PG (27.0-34.0); MEAN CORPUSCULAR HGB CONC 33.3 % (32.0-36.0); MEAN PLATELET VOLUME 8.7 FL (7.0-11.0); MONO % 6.6 % (0.0-8.0); PLATELET COUNT 138 TH/MM3 (150-450); RED BLOOD COUNT 4.73 MIL/MM3 (4.50-5.90); RED CELL DISTRIBUTION WIDTH 14.5 % (11.6-17.2); WHITE BLOOD COUNT 14.9 TH/MM3 (4.0-11.0)
--- NOTE | 2017-11-21 16:40 | PD ---
HPI Chief Complaint: Cardiac Complaint Time Seen by Provider: 16:01 Travel History International Travel<30 days: No Contact w/Intl Traveler<30days: No Traveled to known affect area: No History of Present Illness HPI 71-year-old male presents to the ED for evaluation of chest pain. Patient was recently released from the hospital today. Patient was home for about 2 hours and then he developed left-sided chest discomfort. Per patient it was pressure- like and stabbing and it was 10 out of 10. Per patient he was able to sit down an ambulance showed up and they have started him on fluids trying to work him up in as of fluids when in the patient's pain completely resolved. Patient was admitted here for symptomatic bradycardia and required a pacemaker placed. Patient has been doing well since the surgery. Per patient he has no history of heart disease alert and what transpired recently. He does have a history of old smoking. He denies any smoking. He denies any shortness of breath or chest pain at this time. Patient was not given any nitroglycerin. Patient does take aspirin but no other blood thinner. States that he did took aspirin today. Has multiple allergies to different medications including dye. No urinary or bowel movement issues. No fevers chills or sweats. No trauma. Per patient he felt like he was nauseous and wanted to vomit but he never did. PFSH Past Medical History Hx Anticoagulant Therapy: Yes (asa) Cancer: No Cardiovascular Problems: Yes (pacemaker) High Cholesterol: Yes COPD: Yes Diabetes: No Diminished Hearing: Yes Endocrine: No Genitourinary: No Immune Disorder: No Musculoskeletal: No Neurologic: No Psychiatric: No Respiratory: Yes Thyroid Disease: No Tetanus Vaccination: < 5 Years Past Surgical History Abdominal Surgery: Yes (cholecystectomy) Cardiac Surgery: Yes (BYPASS , pacemaker) Cholecystectomy: Yes Pacemaker: Yes Other Surgery: Yes (HEMORROIDECTOMY, bifemoral artery bypass) Social History Alcohol Use: No Tobacco Use: No (QUIT 2 WEEKS AGO) Substance Use: No (DENIES) Allergies-Medications (Allergen,Severity, Reaction): Coded Allergies: diatrizoate meglumine (Verified Allergy, Intermediate, rash, 11/21/17) Rash on body don't remember which part gadobenic acid (Verified Allergy, Intermediate, rash, 11/21/17) Rash on body don't remember which part gadodiamide (Verified Allergy, Intermediate, rash, 11/21/17) Rash on body don't remember which part gadoteridol (Verified Allergy, Intermediate, rash, 11/21/17) Rash on body don't remember which part iodixanol (Verified Allergy, Intermediate, rash, 11/21/17) Rash on body don't remember which part iohexol (Verified Allergy, Intermediate, rash, 11/21/17) Rash on body don't remember which part Reported Meds & Prescriptions Reported Meds & Active Scripts Active Reported Keflex (Cephalexin) 500 Mg Cap 500 Mg PO Q12H Zantac (Ranitidine HCl) 150 Mg Tab 150 Mg PO DAILY Atorvastatin (Atorvastatin Calcium) 20 Mg Tab 20 Mg PO HS Zolpidem ER (Zolpidem Tartrate) 12.5 Mg Tab 12.5 Mg PO HS PRN Diazepam 5 Mg Tab 5 Mg PO TID PRN Finasteride 5 Mg Tab 5 Mg PO DAILY Do not crush. Sertraline (Sertraline HCl) 100 Mg Tab 100 Mg PO DAILY Flomax (Tamsulosin HCl) 0.4 Mg Cap 0.8 Mg PO HS Aspirin 81 Mg Chew 81 Mg CHEW DAILY Review of Systems Except as stated in HPI: all other systems reviewed are Neg Physical Exam Narrative GENERAL: SKIN: Warm and dry. HEAD: Atraumatic. Normocephalic. EYES: Pupils equal and round. No scleral icterus. No injection or drainage. ENT: No nasal bleeding or discharge. Mucous membranes pink and moist. Tongue is midline. No uvula deviation NECK: Trachea midline. No JVD. CARDIOVASCULAR: Regular rate and rhythm. No murmurs, S3, S4. RESPIRATORY: No accessory muscle use. Clear to auscultation. Breath sounds equal bilaterally. GASTROINTESTINAL: Abdomen soft, non-tender, nondistended. Hepatic and splenic margins not palpable. MUSCULOSKELETAL: Extremities without clubbing, cyanosis, or edema. No obvious deformities. Full range of motion of the upper and lower extremities bilaterally. 2+ pulses bilaterally. NEUROLOGICAL: Awake and alert. No obvious cranial nerve deficits. Motor grossly within normal limits. Five out of 5 muscle strength in the arms and legs. Normal speech. PSYCHIATRIC: Appropriate mood and affect; insight and judgment normal. Data Data Last Documented VS Vital Signs Date Time Temp Pulse Resp B/P (MAP) Pulse Ox O2 Delivery O2 Flow Rate FiO2 11/21/17 16:11 99 Room Air 11/21/17 16:07 99.0 63 19 131/86 (101) Orders Orders Electrocardiogram (11/21/17 16:07) Ckmb (Isoenzyme) Profile (11/21/17 16:07) Complete Blood Count With Diff (11/21/17 16:07) Comprehensive Metabolic Panel (11/21/17 16:07) Magnesium (Mg) (11/21/17 16:07) Prothrombin Time / Inr (Pt) (11/21/17 16:07) Act Partial Throm Time (Ptt) (11/21/17 16:07) Troponin I (11/21/17 16:07) Lipase (11/21/17 16:07) Chest, Single Ap (11/21/17 16:07) Ecg Monitoring (11/21/17 16:07) Bilateral Bp Monitoring (11/21/17 16:07) Iv Access Insert/Monitor (11/21/17 16:07) Oximetry (11/21/17 16:07) Oxygen Administration (11/21/17 16:07) Sodium Chloride 0.9% Flush (Ns Flush) (11/21/17 16:15) CKMB (11/21/17 16:20) CKMB% (11/21/17 16:20) Labs Laboratory Tests Test 11/21/17 16:20 White Blood Count 14.9 TH/MM3 Red Blood Count 4.73 MIL/MM3 Hemoglobin 14.4 GM/DL Hematocrit 43.2 % Mean Corpuscular Volume 91.3 FL Mean Corpuscular Hemoglobin 30.4 PG Mean Corpuscular Hemoglobin Concent 33.3 % Red Cell Distribution Width 14.5 % Platelet Count 138 TH/MM3 Mean Platelet Volume 8.7 FL Neutrophils (%) (Auto) 78.0 % Lymphocytes (%) (Auto) 14.2 % Monocytes (%) (Auto) 6.6 % Eosinophils (%) (Auto) 0.9 % Basophils (%) (Auto) 0.3 % Neutrophils # (Auto) 11.6 TH/MM3 Lymphocytes # (Auto) 2.1 TH/MM3 Monocytes # (Auto) 1.0 TH/MM3 Eosinophils # (Auto) 0.1 TH/MM3 Basophils # (Auto) 0.0 TH/MM3 CBC Comment DIFF FINAL Differential Comment Prothrombin Time 11.5 SEC Prothromb Time International Ratio 1.1 RATIO Activated Partial Thromboplast Time 22.9 SEC Blood Urea Nitrogen 19 MG/DL Creatinine 1.10 MG/DL Random Glucose 98 MG/DL Total Protein 6.4 GM/DL Albumin 3.4 GM/DL Calcium Level 8.0 MG/DL Magnesium Level 2.0 MG/DL Alkaline Phosphatase 86 U/L Aspartate Amino Transf (AST/SGOT) 24 U/L Alanine Aminotransferase (ALT/SGPT) 54 U/L Total Bilirubin 0.5 MG/DL Sodium Level 140 MEQ/L Potassium Level 3.8 MEQ/L Chloride Level 108 MEQ/L Carbon Dioxide Level 24.9 MEQ/L Anion Gap 7 MEQ/L Estimat Glomerular Filtration Rate 66 ML/MIN Total Creatine Kinase 307 U/L Creatine Kinase MB 1.2 NG/ML Troponin I 0.03 NG/ML Lipase 64 U/L MDM Medical Decision Making Medical Screen Exam Complete: Yes Emergency Medical Condition: Yes Medical Record Reviewed: Yes Interpretation(s) EKG shows paced rhythm with no sign of acute ischemia and arrhythmia. CBC & BMP Diagram 11/21/17 16:20 Total Protein 6.4, Albumin 3.4, Calcium Level 8.0 L, Magnesium Level 2.0, Alkaline Phosphatase 86, Aspartate Amino Transf (AST/SGOT) 24, Alanine Aminotransferase (ALT/SGPT) 54, Total Bilirubin 0.5 troponin of 0.03 CK WNL Last Impressions Chest X-Ray 11/21/17 1607 Signed Impressions: CONCLUSION: No acute cardiopulmonary disease. Differential Diagnosis Chest pain versus a typical chest pain versus ACS versus costochondritis versus pancreatitis versus postsurgical pain Narrative Course 71-year-old male that presents to the ED for evaluation of chest pain. Patient was properly examined and was found to have signs and symptoms consistent with appears to be chest pain but unclear etiology. Labs and imaging order. Initial EKG showed paced rhythm with no sign of ischemia. Labs and imaging were essentially unremarkable. Patient has been completely asymptomatic here. Nothing has been given to the patient as patient already took aspirin today. Discussed the case with my attending who recommends a speak with the patient's gristmiller. I spoke with Dr. Baker who recommends because of the patient's symptoms and the patient be admitted and have his troponins trended. I discussed this with the patient in length. Patient and family understand reasoning for admission as we cannot completely tell him that he does not have an acute IA. Patient believes that this is likely secondary to indigestion from him drinking coffee which is the first time he drank coffee since his operation. Family and patient feel comfortable going home and they do not want to be admitted as there was just released today. Patient does have good help at home. Patient understands that by leaving we cannot completely diagnose him and he could suffer as well as disability. He also understands that his own gristmiller want him to be admitted. He still wants to go. AMA: The risks of leaving against medical advice without further evaluation treatment were discussed with the patient. These risks include cardiac dysfunction, cardiac dysrhythmia, possible heart attack, possible stroke or . The patient indicated understanding of these risks and appeared to have the capacity to make this decision. Patient was told to follow with gristmiller. See ED worsening symptoms. Diagnosis Primary Impression: Atypical chest pain Patient Instructions: General Instructions Additional Instructions: F/u with your gristmiller. See ED if worst. Med/Other Pt SpecificInfo: No Change to Meds Disposition: 07 AGAINST MEDICAL ADVICE Condition: Stable Ferdinand Archuleta November 21, 2017 16:40
[2017-11-21 16:49] LABS: INTERNATIONAL NORMALIZED RATIO 1.1 RATIO; PROTHROMBIN TIME - PATIENT 11.5 SEC (9.8-11.6)
--- NOTE | 2017-11-21 16:57 | RADRPT ---
EXAM DATE: 11/21/2017 4:42 PM EDT AGE/SEX: 71 years / Male INDICATIONS: Chest pain. CLINICAL DATA: This is the patient's initial encounter. Patient reports that signs and symptoms have been present for 1 day and indicates a pain score of 3/10. MEDICAL/SURGICAL HISTORY: Non-responsive. Pacemaker. COMPARISON: Chest x-ray 11/20/2017. FINDINGS: 2 portable frontal views of the chest show the lungs to be well-expanded and clear. No effusions. Hea rt is normal in size. Dual-lead pacing device on the right. Bony structures are unremarkable. CONCLUSION: No acute cardiopulmonary disease. Electronically signed by: Darien Campbell MD 11/21/2017 4:55 PM EDT
[2017-11-21 16:58] LABS: ALBUMIN 3.4 GM/DL (3.4-5.0); AST (GOT) 24 U/L (15-37); BICARBONATE 24.9 MEQ/L (21.0-32.0); BLOOD UREA NITROGEN 19 MG/DL (7-18); CHLORIDE 108 MEQ/L (98-107); GLOMERULAR FILTRATION RATE 66 ML/MIN (>89); GLUCOSE,RANDOM 98 MG/DL (74-106); SODIUM (NA) 140 MEQ/L (136-145)
[2017-11-21 17:16] LABS: ALKALINE PHOSPHATASE 86 U/L (45-117); ALT (GPT) 54 U/L (12-78); TOTAL BILIRUBIN ADULT 0.5 MG/DL (0.2-1.0); TOTAL PROTEIN 6.4 GM/DL (6.4-8.2); TROPONIN I 0.03 NG/ML (0.02-0.05)
[2017-11-21 18:18] VITALS: BP 137/76
--- NOTE | 2017-11-22 14:04 | EKG ---
Date Performed: 11/21/2017 Time Performed: 16:09:30 PTAGE: 71 years EKG: Electronic atrial pacing Abnormal rhythm ECG Compared to PREVIOUS TRACING , ST depression has resolved. Previous tracin11/20/2017 15.40.29 DOCTOR: Jed Bush Interpretating Date/Time 11/22/2017 14:02:40
== END 2017-11-21 18:23 | disposition left against medical advice (07) ==
LOC: NEPE 15:58
DX: R07.89 Other chest pain (principal); E78.00 Pure hypercholesterolemia, unspecified; Z79.899 Other long term (current) drug therapy
CPT/HCPCS: 71045; 80053; 82550; 82552; 83690; 83735; 84484; 85025; 85610; 85730; 93005